=== PATIENT | female | born 1950 | race Caucasian/White ===

== ENCOUNTER 2019-06-08 08:33 | Outpatient (CLI) | payer MEDICARE, SELFPAY ==
[2019-06-08 09:40] LABS: Alanine Aminotransferase 8 U/L (4-35); Albumin Level 3.6 g/dL (3.5-5.1); Alkaline Phosphatase 104 U/L (38-126); Aspartate Amino Transferase 14 U/L (14-36); Bilirubin,Total 0.3 mg/dL (0.2-1.3); Blood Urea Nitrogen 41 mg/dL (7-17); Calcium 8.4 mg/dL (8.4-10.2); Carbon Dioxide 24 mmol/L (22-30); Chloride 107 mmol/L (98-107); Cholesterol 141 mg/dL (0-200); Estimated Glomerular Filt Rate 25; Glucose 173 mg/dL (65-105); HDL Direct 40 mg/dL; Potassium 3.9 mmol/L (3.4-5.0); Sodium 140 mmol/L (137-145); Triglycerides 138 mg/dL (<150)
[2019-06-08 09:51] LABS: LDL Cholesterol Direct 78 mg/dL
== END 2019-06-08 08:34 | disposition home or self-care (01) ==
PROVIDERS: PCP Physician Assistant; Visit Provider Physician Assistant
DX: E11.42 Type 2 diabetes mellitus with diabetic polyneuropathy (principal); Z79.4 Long term (current) use of insulin; E78.5 Hyperlipidemia, unspecified; E11.69 Type 2 diabetes mellitus with other specified complication; R53.83 Other fatigue
CPT/HCPCS: 36415; 80053; 80061; 83036; 84443

== ENCOUNTER 2020-02-23 08:48 | Outpatient (CLI) | payer MEDICARE, SELFPAY ==
[2020-02-23 09:25] LABS: Basophils Percent Auto 0.5 % (0.2-1.2); Eosinophils Absolute Auto 0.2 K/mm3 (0-0.3); Eosinophils Percent Auto 2.3 % (0-4.4); Hematocrit 38.9 % (37.0-47.0); Hemoglobin 12.3 g/dL (12.0-15.0); Immature Granulocyte Absolute 0.04 K/mm3 (0.00-0.031); Immature Granulocyte Percent A 0.5 % (0-0.5); Immature Platelet Fraction Pct 4.2 % (0.9-11.2); Lymphocytes Absolute Auto 1.44 K/mm3 (0.9-3.2); Lymphocytes Percent Auto 16.3 % (18.3-44.2); Mean Corpuscular HGB Conc 31.6 g/dl (32-36); Mean Corpuscular Hemoglobin 31.2 pg (26-34); Mean Corpuscular Volume 98.7 fl (80-100); Monocytes Absolute Auto 0.6 K/mm3 (0.1-0.6); Monocytes Percent Auto 7.3 % (2.6-8.5); Neutrophils Absolute Auto 6.5 K/mm3 (1.3-6.7); Neutrophils Percent Auto 73.1 % (45.5-73.1); Platelet Count Result 131 k/mm3 (150-375); Red Blood Count 3.94 M/mm3 (4.2-5.4); White Blood Count 8.8 K/mm3 (4.5-10.0)
[2020-02-23 09:51] LABS: Alanine Aminotransferase 9 U/L (4-35); Albumin Level 3.7 g/dL (3.5-5.1); Alkaline Phosphatase 93 U/L (38-126); Anion Gap 6 mmol/L (8-16); Aspartate Amino Transferase 18 U/L (14-36); Bilirubin,Total 0.3 mg/dL (0.2-1.3); Blood Urea Nitrogen 50 mg/dL (7-17); Calcium 8.8 mg/dL (8.4-10.2); Carbon Dioxide 25 mmol/L (22-30); Chloride 106 mmol/L (98-107); Cholesterol 133 mg/dL (0-200); Estimated Glomerular Filt Rate 20; Glucose 235 mg/dL (65-105); HDL Direct 37 mg/dL; Potassium 4.9 mmol/L (3.4-5.0); Sodium 137 mmol/L (137-145); Triglycerides 102 mg/dL (<150)
[2020-02-23 09:57] LABS: Hemoglobin A1C 8.8 % (<5.7)
[2020-02-23 10:02] LABS: LDL Cholesterol Direct 73 mg/dL
== END 2020-02-23 08:49 | disposition home or self-care (01) ==
PROVIDERS: PCP Physician Assistant; Visit Provider Physician Assistant
DX: R19.7 Diarrhea, unspecified (principal); R53.83 Other fatigue; E11.59 Type 2 diabetes mellitus with other circulatory complications
CPT/HCPCS: 36415; 80053; 80061; 83036; 84443; 85025; 85055

== ENCOUNTER 2020-02-24 10:16 | Outpatient (NON) | payer MEDICARE, SELFPAY | END 2020-02-24 10:17 | LOC: ANHLAB 10:17 | PROVIDERS: PCP Physician Assistant; Visit Provider Physician Assistant | DX: R19.7 Diarrhea, unspecified (principal) | CPT/HCPCS: 87045; 87046; 87177; 87209; 87324; 87427 ==

== ENCOUNTER 2020-09-26 09:41 | Outpatient (CLI) | payer MEDICARE, SELFPAY ==
[2020-09-26 10:29] LABS: Basophils Percent Auto 0.5 % (0.2-1.2); Eosinophils Absolute Auto 0.2 K/mm3 (0-0.3); Eosinophils Percent Auto 1.8 % (0-4.4); Hemoglobin 13.3 g/dL (12.0-15.0); Immature Granulocyte Absolute 0.04 K/mm3 (0.00-0.031); Immature Granulocyte Percent A 0.5 % (0-0.5); Lymphocytes Absolute Auto 1.49 K/mm3 (0.9-3.2); Lymphocytes Percent Auto 16.9 % (18.3-44.2); Mean Corpuscular HGB Conc 31.7 g/dl (32-36); Mean Corpuscular Hemoglobin 30.5 pg (26-34); Mean Corpuscular Volume 96.3 fl (80-100); Mean Platelet Volume 10.6 fl (7.4-10.4); Monocytes Absolute Auto 0.7 K/mm3 (0.1-0.6); Monocytes Percent Auto 7.6 % (2.6-8.5); Neutrophils Absolute Auto 6.4 K/mm3 (1.3-6.7); Neutrophils Percent Auto 72.7 % (45.5-73.1); Platelet Count Result 152 k/mm3 (150-375); Red Blood Count 4.36 M/mm3 (4.2-5.4); Red Cell Distribution Width 13.4 % (11.5-14.5); White Blood Count 8.8 K/mm3 (4.5-10.0)
[2020-09-26 10:36] LABS: Alanine Aminotransferase 10 U/L (4-35); Albumin Level 3.8 g/dL (3.5-5.1); Alkaline Phosphatase 106 U/L (38-126); Anion Gap 9 mmol/L (8-16); Aspartate Amino Transferase 15 U/L (14-36); Bilirubin,Total 0.6 mg/dL (0.2-1.3); Blood Urea Nitrogen 34 mg/dL (7-17); Calcium 8.9 mg/dL (8.4-10.2); Carbon Dioxide 31 mmol/L (22-30); Chloride 97 mmol/L (98-107); Cholesterol 150 mg/dL (0-200); Estimated Glomerular Filt Rate 22; Glucose 358 mg/dL (65-105); HDL Direct 42 mg/dL; Potassium 3.4 mmol/L (3.4-5.0); Sodium 137 mmol/L (137-145); Triglycerides 139 mg/dL (<150)
[2020-09-26 10:37] LABS: Hemoglobin A1C 10.7 % (<5.7)
[2020-09-26 10:48] LABS: LDL Cholesterol Direct 71 mg/dL
[2020-09-26 11:13] LABS: Creatinine Urine 344.4 mg/dL
[2020-09-26 11:19] LABS: MALB Creatinine Ratio 25.4 mg/g (0-30); Microalbumin Urine Random 87.4 mg/L (0-16.7)
== END 2020-09-26 09:42 | disposition home or self-care (01) ==
PROVIDERS: PCP Physician Assistant; Visit Provider Physician Assistant
DX: E11.42 Type 2 diabetes mellitus with diabetic polyneuropathy (principal); Z79.4 Long term (current) use of insulin; R53.83 Other fatigue
CPT/HCPCS: 36415; 80053; 80061; 82043; 83036; 84443; 85025

== ENCOUNTER 2021-04-13 23:13 | Emergency (ER) | payer MEDICARE, SELFPAY ==
[2021-04-13 23:20] VITALS: BP 108/72; PULSE 64; RESP 18; TEMP 36.7; O2SAT 100
[2021-04-13] MEDS: SODIUM CHLORIDE 0.9% IV 1,000 ML 999 ML IV CONT (23:48)
[2021-04-13] MEDS: ALBUTEROL SULFATE NEB 2.5 MG/0.5 ML INH 5 MG INHALATION (23:50)
[2021-04-13] MEDS: IPRATROPIUM BR 0.02% INH SOLN 0.5 MG/2.5 ML VIAL INHALATION (23:50)
[2021-04-13 23:54] VITALS: PULSE 62; RESP 17
[2021-04-14 00:02] VITALS: PULSE 69; RESP 17
[2021-04-14 00:16] LABS: Basophils Percent Auto 0.3 % (0.2-1.2); Eosinophils Absolute Auto 0.2 K/mm3 (0-0.3); Eosinophils Percent Auto 2.5 % (0-4.4); Hematocrit 35.2 % (37.0-47.0); Hemoglobin 11.1 g/dL (12.0-15.0); Immature Granulocyte Absolute 0.07 K/mm3 (0.00-0.031); Immature Granulocyte Percent A 0.8 % (0-0.5); Lymphocytes Percent Auto 15.2 % (18.3-44.2); Mean Corpuscular HGB Conc 31.5 g/dl (32-36); Mean Corpuscular Hemoglobin 30.8 pg (26-34); Mean Corpuscular Volume 97.8 fl (80-100); Mean Platelet Volume 9.9 fl (7.4-10.4); Monocytes Absolute Auto 0.8 K/mm3 (0.1-0.6); Monocytes Percent Auto 8.9 % (2.6-8.5); Neutrophils Absolute Auto 6.7 K/mm3 (1.3-6.7); Neutrophils Percent Auto 72.3 % (45.5-73.1); Platelet Count Result 207 k/mm3 (150-375); Red Cell Distribution Width 12.7 % (11.5-14.5); White Blood Count 9.2 K/mm3 (4.5-10.0)
[2021-04-14 00:24] LABS: Acetaminophen < 10 ug/mL (10-30); Ethanol < 10 mg/dL (<10); Potassium 3.7 mmol/L (3.4-5.0)
[2021-04-14 00:30] LABS: Alanine Aminotransferase 7 U/L (4-35); Albumin Level 3.7 g/dL (3.5-5.1); Alkaline Phosphatase 78 U/L (38-126); Anion Gap 8 mmol/L (8-16); Aspartate Amino Transferase 16 U/L (14-36); Bilirubin,Total 0.4 mg/dL (0.2-1.3); Blood Urea Nitrogen 31 mg/dL (7-17); Calcium 8.7 mg/dL (8.4-10.2); Carbon Dioxide 27 mmol/L (22-30); Chloride 102 mmol/L (98-107); Estimated CRCL calculation 20 ml/min; Estimated Glomerular Filt Rate 18; Glucose 96 mg/dL (65-110); Magnesium 2.1 mg/dL (1.6-2.3); Sodium 137 mmol/L (137-145)
[2021-04-14 00:36] LABS: INR 1.4; Partial Thromboplastin Time 43.2 SECONDS (22.3-36.8); Prothrombin Time 17.2 Seconds (11.1-14.7)
--- NOTE | 2021-04-14 00:52 | ED.GENADULT ---
HPI - General Adult General Chief complaint: Unspecified Stated complaint: TOOK 4-300MG LITHIUM Time Seen by Provider: 04/13/21 23:22 History of Present Illness HPI narrative: Patient is a 70-year-old female who presents ER after inadvertently taking her daughter's medication. They both take for prescription meds and she grabbed the wrong medications. This caused her to ingest 1 300 mg tablet of lithium, and also a tablet of Seroquel tablet of topiramate, and that tablet of BuSpar. Patient reports shortly afterwards she did feel like she was high and she began slurring her speech. She reports both have improved however she still has some mild slurred speech and feels tired. She is concerned that she may have ingested in an appropriate amount of medication. Denies any other coingestants. Denies any intoxication. Related Data Allergies Allergy/AdvReac Type Severity Reaction Status Date / Time Sulfa (Sulfonamide Allergy Unknown Unknown Verified 01/31/18 10:29 Antibiotics) Review of Systems Review of Systems: All systems reviewed & are unremarkable except as noted in HPI and below Constitutional: Constitutional: Denies chills, Denies fever(s) and Denies weakness Cardiovascular: Cardiovascular: Denies chest pain, Denies radiating jaw, neck or arm pain and Denies palpitations Respiratory: Respiratory: Denies cough, Denies dyspnea and Reports wheezing (Chronic from COPD) Neurologic: Denies dizziness, Denies headache(s) and Denies focal weakness Comments: Slurred speech Psychiatric: Psychiatric: Denies anxiety, Denies depression, Denies homicidal ideation and Denies suicidal ideation [facility] Past Medical History Medical History (Updated 04/14/21 @ 06:35 by Lj Long MD) Anxiety CHF (congestive heart failure) COPD (chronic obstructive pulmonary disease) Depression DVT (deep venous thrombosis) History of diabetes mellitus Hyperlipidemia Hypertension Kidney stones Surgical History Surgical History (Updated 04/14/21 @ 06:26 by Lj Long MD) H/O lumpectomy History of cholecystectomy History of tonsillectomy Social History Social History Smoking status: Heavy tobacco smoker Exam Narrative: GENERAL: Chronically ill-appearing, morbidly obese, and in no acute distress. HEAD: Normocephalic, atraumatic. EYES: PERRL and EOMI. ENT: Mucous membranes moist. CHEST: Expiratory wheezing bilaterally. No respiratory distress. HEART: Regular rate and rhythm. Normal peripheral pulses. ABDOMEN: Soft, nontender, nondistended. EXTREMITIES: Normal range of motion. No edema. SKIN: Warm, dry, no rash. NEURO: No facial droop, slurring speech is more consistent with sedation. Alert and oriented x3. PSYCH: Normal mood and affect. No SI/HI. Course Course Emergency Course: Patient observed and also received nebulizer treatment. Resting calmly. Oriented x3. Clear speech. Ready to be discharged home. Vital Signs Vital signs: Vital Signs Temperature 98.0 F 04/13/21 23:20 Pulse Rate 64 04/13/21 23:20 Respiratory Rate 18 04/13/21 23:20 Blood Pressure 108/72 04/13/21 23:20 Pulse Oximetry 100 04/13/21 23:20 Temperature 98.0 F 04/13/21 23:20 Pulse Rate 79 04/14/21 04:49 Respiratory Rate 18 04/14/21 04:49 Blood Pressure 159/83 H 04/14/21 04:49 Pulse Oximetry 98 04/14/21 04:49 Medical Decision Making Vital Signs Vital Signs: Vital Signs Temperature 98.0 F 04/13/21 23:20 Pulse Rate 64 04/13/21 23:20 Respiratory Rate 18 04/13/21 23:20 Blood Pressure 108/72 04/13/21 23:20 Pulse Oximetry 100 04/13/21 23:20 Temperature 98.0 F 04/13/21 23:20 Pulse Rate 79 04/14/21 04:49 Respiratory Rate 18 04/14/21 04:49 Blood Pressure 159/83 H 04/14/21 04:49 Pulse Oximetry 98 04/14/21 04:49 Lab Data Result diagrams: 04/13/21 23:51 04/13/21 23:52 Labs: Lab Results 04/13/21 04/13/21 04/13/21 Range/Units 23:51
[2021-04-14 01:25] LABS: Lithium < 0.2 mmol/L (0.6-1.2)
[2021-04-14] MEDS: SODIUM CHLORIDE 0.9% IV 500 ML 999 ML IV CONT (02:24)
[2021-04-14 03:13] LABS: Add Urine Microscopic? YES; Appearance Urine Cloudy (Clear); Bacteria Urine 1+ /hpf; Bilirubin Urine Negative (Negative); Blood Urine Negative (Negative); Color Urine Amber (Yellow); Glucose Urine UA Negative (Negative); Ketones Urine Negative (Negative); Leukocyte Esterase Ur 1+ LEU/UL (Negative); Mucus Urine Rare /lpf; Nitrate Urine Negative (Negative); Protein Urine Negative (Negative); Specific Grav Ur 1.018 (1.001-1.035); Squamous Epithelial Cell Urine Many /hpf (Few)
[2021-04-14 04:49] VITALS: BP 159/83; PULSE 79; RESP 18; O2SAT 98
--- NOTE | 2021-04-14 07:15 | PC.NURSE ---
daughter contacted and stated she will be in as soon as possible to transport patient home.
== END 2021-04-14 07:30 | disposition home or self-care (01) ==
PROVIDERS: Emergency Provider Emergency Medicine; PCP Physician Assistant
DX: T43.591A Poisoning by other antipsychotics and neuroleptics, accidental (unintentional), initial encounter (principal); T42.6X1A Poisoning by other antiepileptic and sedative-hypnotic drugs, accidental (unintentional), initial encounter; I50.9 Heart failure, unspecified; J44.9 Chronic obstructive pulmonary disease, unspecified; E11.9 Type 2 diabetes mellitus without complications; E78.5 Hyperlipidemia, unspecified; Z87.442 Personal history of urinary calculi; Z86.718 Personal history of other venous thrombosis and embolism; I11.0 Hypertensive heart disease with heart failure; F17.200 Nicotine dependence, unspecified, uncomplicated; R82.998 Other abnormal findings in urine
CPT/HCPCS: 36415; 80053; 80178; 80307; 81001; 83735; 84443; 85025; 85610; 85730; 87086; 87088; 94640; 96360; 96361; 99284; J7030; J7040

== ENCOUNTER 2021-08-14 11:06 | Outpatient (CLI) | payer MEDICARE, SELFPAY ==
[2021-08-14 11:35] LABS: Basophils Absolute Auto 0.1 K/mm3 (0.0-0.1); Basophils Percent Auto 0.5 % (0.2-1.2); Eosinophils Absolute Auto 0.2 K/mm3 (0-0.3); Eosinophils Percent Auto 1.5 % (0-4.4); Hematocrit 34.6 % (37.0-47.0); Hemoglobin 11.2 g/dL (12.0-15.0); Immature Granulocyte Absolute 0.04 K/mm3 (0.00-0.031); Immature Granulocyte Percent A 0.4 % (0-0.5); Lymphocytes Absolute Auto 1.54 K/mm3 (0.9-3.2); Lymphocytes Percent Auto 15.7 % (18.3-44.2); Mean Corpuscular HGB Conc 32.4 g/dl (32-36); Mean Corpuscular Hemoglobin 32.1 pg (26-34); Mean Corpuscular Volume 99.1 fl (80-100); Monocytes Absolute Auto 0.8 K/mm3 (0.1-0.6); Monocytes Percent Auto 8.4 % (2.6-8.5); Neutrophils Absolute Auto 7.2 K/mm3 (1.3-6.7); Neutrophils Percent Auto 73.5 % (45.5-73.1); Platelet Count Result 199 k/mm3 (150-375); Red Blood Count 3.49 M/mm3 (4.2-5.4); Red Cell Distribution Width 15.9 % (11.5-14.5); White Blood Count 9.8 K/mm3 (4.5-10.0)
[2021-08-14 11:47] LABS: Alanine Aminotransferase 8 U/L (4-35); Albumin Level 3.8 g/dL (3.5-5.1); Alkaline Phosphatase 82 U/L (38-126); Anion Gap 6 mmol/L (8-16); Aspartate Amino Transferase 17 U/L (14-36); Bilirubin,Total 0.6 mg/dL (0.2-1.3); Blood Urea Nitrogen 28 mg/dL (7-17); Calcium 8.4 mg/dL (8.4-10.2); Carbon Dioxide 28 mmol/L (22-30); Chloride 103 mmol/L (98-107); Cholesterol 152 mg/dL (0-200); Estimated Glomerular Filt Rate 30; Glucose 120 mg/dL (65-110); HDL Direct 36 mg/dL; Potassium 3.7 mmol/L (3.4-5.0); Sodium 137 mmol/L (137-145); Triglycerides 102 mg/dL (<150)
[2021-08-14 11:58] LABS: LDL Cholesterol Direct 76 mg/dL
[2021-08-14 13:14] LABS: Creatinine Urine 263.9 mg/dL
[2021-08-14 13:35] LABS: MALB Creatinine Ratio 31.1 mg/g (0-30); Microalbumin Urine Random 82.2 mg/L (0-16.7)
== END 2021-08-14 11:07 | disposition home or self-care (01) ==
PROVIDERS: PCP Physician Assistant; Visit Provider Physician Assistant
DX: R53.83 Other fatigue (principal); E11.59 Type 2 diabetes mellitus with other circulatory complications; I15.2 Hypertension secondary to endocrine disorders
CPT/HCPCS: 36415; 80053; 80061; 82043; 83036; 84443; 85025

== ENCOUNTER 2021-08-17 14:59 | Emergency (ER) | payer MEDICARE, SELFPAY ==
--- NOTE | ~2021-08-17 | XR_ITS ---
EXAMINATION: XR shoulder RT min 2V DATE: 08/17/2021 15:18 INDICATION: Right shoulder pain. TECHNIQUE: 4 views of right shoulder were obtained. COMPARISON: None. FINDINGS: Bone alignment is normal. There is a nondisplaced fracture of greater tuberosity of proxima l humerus. Glenohumeral joint is not well profiled. There is severe acromioclavicular joint osteoarth ritis. IMPRESSION: 1. Nondisplaced fracture of greater tuberosity of proximal humerus. Reviewed, dictated and finalized at location A.
[2021-08-17 15:02] VITALS: BP 129/79; PULSE 80; RESP 18; TEMP 36.8; O2SAT 100
--- NOTE | 2021-08-17 16:27 | ED.UPPEXIN ---
HPI - Extremity Injury (Upper) General Chief Complaint: Extremity Injury, Upper Stated Complaint: FALL/DISLO RT HSOULDER Time Seen by Provider: 08/17/21 15:01 History of Present Illness HPI narrative: Patient is a 70-year-old female who presents ER status post fall. Patient was walking up a ramp at her home when she slipped in the water and fell on her left side. Sudden onset pain to the left shoulder which she landed on. She did not strike her head or lose consciousness. She is not on any blood thinners. She has no pain at her elbow or wrist. No numbness or tingling. Related Data Allergies Allergy/AdvReac Type Severity Reaction Status Date / Time Sulfa (Sulfonamide Allergy Unknown Unknown Verified 01/31/18 10:29 Antibiotics) Review of Systems Review of Systems: All systems reviewed & are unremarkable except as noted in HPI and below Gastrointestinal: Gastrointestinal: Denies nausea and Denies vomiting Musculoskeletal: Musculoskeletal: Reports arthralgias, Denies joint swelling and Denies muscle cramps Neurologic: Denies syncope, Denies headache(s), Denies focal weakness and Denies numbness [facility] Past Medical History Medical History (Updated 08/17/21 @ 16:31 by Lj Long MD) Anxiety CHF (congestive heart failure) COPD (chronic obstructive pulmonary disease) Depression DVT (deep venous thrombosis) History of diabetes mellitus Hyperlipidemia Hypertension Kidney stones Surgical History Surgical History (Updated 04/14/21 @ 06:26 by Lj Long MD) H/O lumpectomy History of cholecystectomy History of tonsillectomy Social History Social History Smoking status: Heavy tobacco smoker Exam Narrative: GENERAL: Well-appearing, well-nourished, and in no acute distress. HEAD: Normocephalic, atraumatic. CHEST: Clear to auscultation. No respiratory distress. HEART: Regular rate and rhythm. No murmur heard. Normal peripheral pulses. EXTREMITIES: Limited range of motion at the right shoulder due to pain. Tender palpation over the lateral aspect and anterior joint line of the shoulder. No clavicular tenderness. Normal perfusion and sensation throughout the entirety of the right upper extremity. No tenderness at the wrist or elbow. SKIN: Warm, dry, no rash. NEURO: Alert and oriented x3. PSYCH: Normal mood and affect. Course Course Emergency Course: Patient informed of results. Placed in a sling. Will refer to orthopedic surgery. Discharge home. Vital Signs Vital signs: Vital Signs Temperature 98.2 F 08/17/21 15:02 Pulse Rate 80 08/17/21 15:02 Respiratory Rate 18 08/17/21 15:02 Blood Pressure 129/79 08/17/21 15:02 Pulse Oximetry 100 08/17/21 15:02 Temperature 98.2 F 08/17/21 15:02 Pulse Rate 80 08/17/21 15:02 Respiratory Rate 18 08/17/21 15:02 Blood Pressure 129/79 08/17/21 15:02 Pulse Oximetry 100 08/17/21 15:02 MDM - Extremity Injury (Upper) Imaging Data Radiologist's impression: ITS Impressions Shoulder X-Ray 08/17/21 15:19 IMPRESSION: 1. Nondisplaced fracture of greater tuberosity of proximal humerus. Discharge Plan Discharge Clinical Impression: Nondisplaced fracture of greater tuberosity of humerus Patient Disposition: Home, Self-Care Condition: Stable Instructions: Arm Fracture in Adults (ED), How to Use a Sling (ED) Additional Instructions: Return the ER if you suffer additional injury, you have a cold/blue arm, you have new numbness in your arm, you have additional concerns. Prescriptions: New hydrocodone-acetaminophen 5-325 mg tablet 1 tablet PO Q6H PRN (Reason: pain) Qty: 20 RF: 0 Follow-up/Referrals: Gibson Hightower MD [Physician] - 1 Week Timothy,YVETTE Olea [Primary Care Provider] - None
== END 2021-08-17 16:45 | disposition home or self-care (01) ==
PROVIDERS: Emergency Provider Emergency Medicine; PCP Physician Assistant
DX: S42.254A Nondisplaced fracture of greater tuberosity of right humerus, initial encounter for closed fracture (principal); I50.9 Heart failure, unspecified; J44.9 Chronic obstructive pulmonary disease, unspecified; E11.9 Type 2 diabetes mellitus without complications; E78.5 Hyperlipidemia, unspecified; I10 Essential (primary) hypertension; Z86.718 Personal history of other venous thrombosis and embolism; Z87.442 Personal history of urinary calculi; F17.200 Nicotine dependence, unspecified, uncomplicated
CPT/HCPCS: 73030; 99284; A4565

== ENCOUNTER 2021-08-19 11:17 | Outpatient (NON) | payer MEDICARE, SELFPAY | END 2021-08-19 11:18 | disposition home or self-care (01) | LOC: ANHLAB 11:20 | PROVIDERS: PCP Physician Assistant; Visit Provider Physician Assistant | DX: R30.0 Dysuria (principal) | CPT/HCPCS: 87086 ==

== ENCOUNTER 2022-02-02 13:40 | Emergency (ER) | payer MEDICARE, SELFPAY ==
[2022-02-02 13:50] VITALS: BP 100/58; PULSE 60; RESP 20; TEMP 36.2; O2SAT 100
--- NOTE | 2022-02-02 14:33 | ED.EAR ---
HPI - Ear Problem General Chief complaint: Ear Stated complaint: Lt Ear Irritation Time Seen by Provider: 02/02/22 14:20 Source: patient Mode of arrival: ambulatory Limitations: no limitations History of Present Illness HPI Narrative: 71 y/o female presented for c/o left ear pain after Q-tip trauma one week ago. States she was cleaning the left ear with the cotton swab when she 'went in too deep and pulled out a sac of blood.' Since then she has had pain to the ear, decreased hearing and bloody drainage since. Endorses occasional dizziness. Denies tinnitus, nausea, vomiting or fever. She has applied neosporin to the site and covered it with dressing to prevent the wind from getting in the ear. States she takes aspirin daily and 'a blood thinner' but does not know if she is actively taking the medication at this time. Granddaughter states someone helps her with the medication. Nick is on the med list. Hx CHF, COPD, HTN, DVT, DM MD Complaint: ear pain Related Data Home Medications Medication Instructions Recorded Confirmed Blood Thinner PO DIRECTED 09/01/21 09/01/21 albuterol sulfate 90 mcg/actuation inhalation 02/02/22 aerosol inhaler clonazepam 1 mg tablet mg 02/02/22 insulin detemir U-100 100 unit/mL unit subcut 02/02/22 (3 mL) subcutaneous pen (Levemir FlexTouch U-100 Insulin) linagliptin 5 mg tablet (Tradjenta) mg 02/02/22 Allergies Allergy/AdvReac Type Severity Reaction Status Date / Time Sulfa (Sulfonamide Allergy Unknown Unknown Verified 09/01/21 08:36 Antibiotics) Review of Systems Review of Systems: CONSTITUTIONAL: Denies malaise, chills, or fever. EYES: Denies visual changes, redness, or discharge. ENT: Denies rhinorrhea, congestion, sinus pain, and sore throat. Reports ear pain CARDIOVASCULAR: Denies chest pain, palpitations, or edema. RESPIRATORY: Denies cough or dyspnea. GASTROINTESTINAL: Denies abdominal pain, nausea, vomiting, diarrhea SKIN: Denies rash or itching. MUSCULOSKELETAL: Denies myalgia. NEUROLOGIC: Denies headache. All systems reviewed & are unremarkable except as noted in HPI and below PMFSH Past Medical History Medical History Anxiety Arthritis CHF (congestive heart failure) Claustrophobia COPD (chronic obstructive pulmonary disease) Depression Diabetes DVT (deep venous thrombosis) Fracture of greater tuberosity of humerus History of diabetes mellitus Hyperlipidemia Hypertension IBS (irritable bowel syndrome) Kidney stones MRSA (methicillin resistant staph aureus) culture positive Opioid dependence DANNI (obstructive sleep apnea) Vision changes Surgical History Surgical History H/O lumpectomy History of cholecystectomy History of tonsillectomy Pacemaker Family History Family History Other Arthritis Depression Diabetes mellitus Heart disease Hypertension Kidney disorder Neuropathy Social History Social History Smoking status: Heavy tobacco smoker Tobacco type: cigarettes Alcohol intake: never Substance use type: does not use Gender identity (if verbalized by the patient): Female Comments At time of signature, agree with nursing past medical, surgical, social and family history. There is no relevant family history pertinent to the presenting complaint Exam Narrative: GENERAL: Chronically ill appearing; in no acute distress. HEAD: Normocephalic, atraumatic EYES: PERRLA, conjunctivae clear ENT: Nares clear. Mucous membranes moist. Right TM pearly gallo with normal light reflex; Left TM unable to visualize due to dried and clotted blood; See procedural note. Oropharynx not erythematous without lesions. NECK: Supple. No lymphadenopathy CHEST: Lungs diminished with wheezing throughout; audible wheezing noted;
== END 2022-02-02 14:48 | disposition home or self-care (01) ==
PROVIDERS: Emergency Provider Nurse Practitioner Family; PCP Physician Assistant
DX: S09.22XA Traumatic rupture of left ear drum, initial encounter (principal); X58.XXXA Exposure to other specified factors, initial encounter; I11.0 Hypertensive heart disease with heart failure; I15.0 Renovascular hypertension; J44.9 Chronic obstructive pulmonary disease, unspecified; E11.9 Type 2 diabetes mellitus without complications; Z86.718 Personal history of other venous thrombosis and embolism; F41.9 Anxiety disorder, unspecified; M19.90 Unspecified osteoarthritis, unspecified site; G47.33 Obstructive sleep apnea (adult) (pediatric); Z95.0 Presence of cardiac pacemaker
CPT/HCPCS: 69200; 99213; G0463

== ENCOUNTER 2022-03-24 17:32 | Inpatient (IN) | payer MEDICARE, SELFPAY ==
[2022-03-24] VITALS (7 sets, daily range): BP systolic 103–133; BP diastolic 54–79; PULSE 59–78; RESP 18–20; TEMP 36.5–36.8; O2SAT 89–100; BMI 45.7
--- NOTE | ~2022-03-24 | CT_ITS ---
EXAMINATION: CT brain wo con INDICATION: Altered mental status COMPARISON: 12/18/2018 TECHNIQUE: Standard unenhanced head CT. The dose-length product (DLP) was 605.33 mGy-cm. The mA was a djusted according to patient size. Iterative reconstruction technique was employed. FINDINGS: There is no acute intraparenchymal hemorrhage. No evidence of mass lesion. No evidence of a cute infarction. There is mild periventricular and subcortical hypodensity probably related to small vessel ischemic disease. There is mild prominence of the sulci and ventricles related to cerebral atr ophy. Intracranial calcified cerebral atherosclerosis is noted. There are no extra-axial collections. There is no mass effect or midline shift. Changes in the globes are likely from ocular lens surgery. There is mild mucosal thickening of the paranasal sinuses. IMPRESSION: 1. No acute intracranial abnormality. 2. Age related findings. Reviewed, dictated and finalized at location A. D ENGINEER AUDIO CONTROL
--- NOTE | ~2022-03-24 | XR_ITS ---
EXAMINATION: XR chest 2V Exam Date/Time: 03/24/2022 19:10 RESEARCH MANAGER HISTORY: SOB, wheezing, hx COPD, HX CHF Comparison: None available. RESULT: Lines, tubes, and devices: Left chest pacer/defibrillator, with 3 intact leads. Cholecystectomy clip s. Lungs and pleura: Right hemidiaphragm elevation, otherwise clear. Cardiomediastinal silhouette: Stable. Other: No acute osseous or upper abdominal finding. IMPRESSION: No acute cardiopulmonary process. Reviewed, dictated and finalized at location K. ARCH MANAGER
--- NOTE | ~2022-03-24 | XR_ITS ---
Portable chest x-ray Comparison: 03/24/2022 Clinical History: Wheezing Findings: Probable mild central pulmonary venous congestive changes. No consolidation or pleural eff usion. Cardiomediastinal silhouette is stable, with pacemaker device. Bones and soft tissues are unr emarkable. Impression: Mild central pulmonary venous congestive change. Pacemaker is. Reviewed, dictated and finalized at location [] PRINTER APPRENTICE Impression: Mild central pulmonary venous congestive change. Pacemaker is.
--- NOTE | ~2022-03-24 | XR_ITS ---
EXAMINATION: XR chest 1V portable INDICATION: Shortness of breath TECHNIQUE: Portable AP chest at 0946 hours COMPARISON: 03/29/2022 FINDINGS: Minimal interstitial opacities persist with slight improvement. The cardiomediastinal silho uette is stable. No pleural effusion or pneumothorax. A triple lead cardiac pacemaker of the left olivia st wall ends with leads in expected locations. IMPRESSION: 1. Mild pulmonary edema with interval improvement. Reviewed, dictated and finalized at location A. BILITATION AIDE/SCHEDULER
--- NOTE | 2022-03-24 17:55 | ECG_ITS ---
Measurements Intervals [place] Rate: 60 P: 94 OR: 182 QRS: 34 QRSD: 134 T: 24 QT: 468 QTc: 468 Interpretive Statements ELECTRONIC ATRIAL PACEMAKER ELECTRONIC VENTRICULAR PACEMAKER ABNORMAL RHYTHM ECG COMPARED TO ECG 11/27/2018 14:29:02 NO SIGNIFICANT CHANGES Electronically Signed On 03-25-2022 8:33:41 URBAN PLANNING TEACHER by Obey Baez M.D.
--- NOTE | 2022-03-24 18:11 | ED.WEAKNESS ---
HPI - Weakness General Chief complaint: Weakness Stated complaint: weakness Time Seen by Provider: 03/24/22 17:55 History of Present Illness HPI Narrative: Patient is a 71-year-old female with a history of COPD, pacemaker placement, DM here for evaluation of weakness, cough and shortness of breath over the past several days. Cough is productive of clear sputum. She tells me she has been dyspneic at rest upon minimal exertion, unrelieved by her home inhalers. Noted to have a pulse saturation in the high 80s upon arrival. Denies history of hypoxia or home o2 requirement. She states that her weakness today led her to fall. Denies any head injury or bony injury in the fall, just states that she feels sore all over. Positive sick contacts, patient's family members are sick with similar symptoms. She denies any chest pain, abdominal pain, nausea, vomiting or leg swelling. She continues to smoke. Related Data Home Medications Medication Instructions Recorded Confirmed Blood Thinner PO DIRECTED 09/01/21 09/01/21 albuterol sulfate 90 mcg/actuation inhalation 02/02/22 aerosol inhaler clonazepam 1 mg tablet mg 02/02/22 insulin detemir U-100 100 unit/mL unit subcut 02/02/22 (3 mL) subcutaneous pen (Levemir FlexTouch U-100 Insulin) linagliptin 5 mg tablet (Tradjenta) mg 02/02/22 Allergies Allergy/AdvReac Type Severity Reaction Status Date / Time Sulfa (Sulfonamide Allergy Unknown Hives Verified 03/24/22 17:50 Antibiotics) Review of Systems Review of Systems: Gen: Denies fevers or chills Eyes: Denies eye pain or visual change ENT: Denies congestion Respiratory: Reports shortness of breath and cough CV: Denies chest pain or palpitations GI: Denies abdominal pain nausea, emesis or diarrhea : denies burning, urgency, frequency or hematuria Musculoskeletal: Denies back pain or muscle pain Neuro: Denies numbness, tingling, weakness or focal weakness Skin: Denies rash Except as documented, all other systems reviewed and negative [facility] Past Medical History Medical History Anxiety Arthritis CHF (congestive heart failure) Claustrophobia COPD (chronic obstructive pulmonary disease) Depression Diabetes DVT (deep venous thrombosis) Fracture of greater tuberosity of humerus History of diabetes mellitus Hyperlipidemia Hypertension IBS (irritable bowel syndrome) Kidney stones MRSA (methicillin resistant staph aureus) culture positive Opioid dependence DANNI (obstructive sleep apnea) Vision changes Surgical History Surgical History H/O lumpectomy History of cholecystectomy History of tonsillectomy Pacemaker Family History Family History Other Arthritis Depression Diabetes mellitus Heart disease Hypertension Kidney disorder Neuropathy Social History Social History Smoking status: Heavy tobacco smoker Tobacco type: cigarettes Alcohol intake: never Substance use type: does not use Gender identity (if verbalized by the patient): Female Exam Narrative: APPEARANCE: Chronically ill-appearing, discheveled Head: Normocephalic and atraumatic. EYES: PERRLA/EOMI, conjunctivae clear NOSE: No nasal drainage EARS: External ear normal in appearance THROAT: Oropharynx is clear. NECK: Supple. No adenopathy, no masses. RESPIRATORY: tachypneic, expiratory and inspiratory wheezing throughout lung dias CARDIOVASCULAR: Regular rate and rhythm without murmurs, rubs, or gallops. ABDOMINAL: Normoactive bowel sounds. Soft, nontender, nondistended. No rebound tenderness or guarding. MUSCULOSKELETAL: Nonpitting edema to bilateral lower extremities. NEURO: Normal speech. No focal neurologic deficits. SKIN: Numerous contusions in various stages of healing to bilate
[2022-03-24 18:32] LABS: Basophils Percent Auto 0.4 % (0.2-1.2); Eosinophils Percent Auto 0.5 % (0-4.4); Hematocrit 34.5 % (37.0-47.0); Hemoglobin 10.7 g/dL (12.0-15.0); Immature Granulocyte Absolute 0.06 K/mm3 (0.00-0.031); Immature Granulocyte Percent A 1.1 % (0-0.5); Immature Platelet Fraction Pct 4.1 % (0.9-11.2); Lymphocytes Absolute Auto 1.13 K/mm3 (0.9-3.2); Mean Corpuscular Hemoglobin 31.9 pg (26-34); Mean Platelet Volume 10.9 fl (7.4-10.4); Monocytes Absolute Auto 0.4 K/mm3 (0.1-0.6); Monocytes Percent Auto 7.6 % (2.6-8.5); Neutrophils Percent Auto 70.4 % (45.5-73.1); Platelet Count Result 132 k/mm3 (150-375); Red Blood Count 3.35 M/mm3 (4.2-5.4); Red Cell Distribution Width 14.4 % (11.5-14.5); White Blood Count 5.7 K/mm3 (4.5-10.0)
[2022-03-24 18:39] LABS: Lactic Acid Reflex 1.3 mmol/L (0.7-2.0)
[2022-03-24 18:40] LABS: Alanine Aminotransferase 12 U/L (6-35); Albumin Level 3.3 g/dL (3.5-5.1); Alkaline Phosphatase 61 U/L (38-126); Anion Gap 3 mmol/L (8-16); Aspartate Amino Transferase 22 U/L (14-36); Bilirubin,Total 0.6 mg/dL (0.2-1.3); Blood Urea Nitrogen 56 mg/dL (7-17); Calcium 7.8 mg/dL (8.4-10.2); Carbon Dioxide 31 mmol/L (22-30); Chloride 101 mmol/L (98-107); Estimated CRCL calculation 23 ml/min; Estimated Glomerular Filt Rate 15; Glucose 175 mg/dL (65-110); Potassium 3.6 mmol/L (3.4-5.0); Sodium 135 mmol/L (137-145)
[2022-03-24 18:48] LABS: NT Pro B Type Natriuretic Pept 1340 pg/mL (5-100)
[2022-03-24] MEDS: predniSONE 20 MG TABLET 60 MG PO (19:18)
[2022-03-24 19:38] LABS: Influenza A QL RT-PCR Positive (Negative); Influenza B QL RT-PCR Negative (Negative); SARS-CoV-2 RNA PCR Negative
[2022-03-24] MEDS: ALBUTEROL SULFATE NEB 2.5 MG/3 ML INH 5 MG INHALATION (20:42)
[2022-03-24] MEDS: SODIUM CHLORIDE 0.9% IV 1,000 ML 999 ML IV CONT (20:42)
[2022-03-24] MEDS: IPRATROPIUM BR 0.02% INH SOLN 0.5 MG/2.5 ML VIAL INHALATION (20:42)
[2022-03-24] MEDS: OSELTAMIVIR PHOSPHATE ORAL SUSP 30 MG/5 ML SYRINGE PO (21:00)
[2022-03-24 21:44] LABS: Fractional Inspired Oxygen 28 %; HCO3 VBG 27.1 mEq/l (24.0-30.0); PCO2 VBG 55.9 mmHg (42.0-48.0); PO2 VBG 37.3 mmHg (35.0-45.0); pH VBG 7.304 (7.300-7.400)
[2022-03-24 21:48] LABS: Device NASAL CANNULA
[2022-03-24] MEDS: SODIUM CHLORIDE 0.9% IV 1,000 ML 100 ML IV CONT (21:49)
--- NOTE | 2022-03-24 22:52 | ADMGEN ---
This patient, Pita Lowry, was admitted to Medical Room 341-01. Patient/family oriented to hospital policies and general routines including ID bracelet, bed and alarms, visiting hours, pain management, procedures, bathroom and other care routines, personal items, smoking policy, room service/diet, and visiting hours. Information on how to activate the Rapid Response Team has been discussed. Patient/Family are encouraged to report perceived risks to care and to ask questions if they do not understand what they are told or what they should do.
[2022-03-24 23:23] LABS: Glucose Point of Care 248 mg/dl (65-105)
[2022-03-25] VITALS (12 sets, daily range): BP systolic 104–115; BP diastolic 46–57; PULSE 59–75; RESP 16–20; TEMP 35.8–36.6; O2SAT 94–100
[2022-03-25] MEDS: IPRATROPIUM BR 0.02% INH SOLN 0.5 MG/2.5 ML VIAL INHALATION ×4 (02:55→22:19)
[2022-03-25] MEDS: ALBUTEROL SULFATE NEB 2.5 MG/3 ML INH 5 MG INHALATION ×4 (02:55→22:19)
--- NOTE | 2022-03-25 07:03 | PM.IMHP ---
H&P: HPI History of Present Illness Date/Time: 03/25/22 07:03 Chief Complaint: Increased weakness, cough and cold symptoms Narrative: 71-year-old female with a past medical history of COPD with continued tobacco use, morbid obesity, obstructive sleep apnea, diabetes, CHF and pacemaker due to sick sinus syndrome who presented to the ER via EMS from home due to increased weakness and cough and cold symptoms. The patient reports that she lives with her granddaughter and that her granddaughter brought home a virus from work. The patient tested positive for influenza a in the ER. She did receive her flu vaccine this year. She reports that she is not on oxygen at home but in the ER patient was hypoxic with sats down to 89%. She received nebulizer treatments and p.o. steroids. She she had borderline hypotension in the ER and received 1 L fluid bolus. The patient reports she has not had any significant oral intake in the last 3 days. She denies any fevers or chills. She reports chronic dyspnea on exertion but does not think it is worse than baseline. She has had increased cough for the past week and reports that her sputum is thicker than usual but is clear in color. She denies any nausea or vomiting. She has chronic urinary incontinence. She states that she goes through phases were she will urinate a lot and then at other times where she cannot urinate. Currently she states that she is not really urinating much at all. She denies any dysuria or hematuria. Sounds as if she may be having some symptoms of incomplete bladder emptying. She has not had a bowel movement in 3 or 4 days. She states that she also seems to fluctuate between loose stools and constipation. It sounds like she takes stool softeners or laxatives until she had diarrhea and then stops taking all those medications in becomes constipated again. She has no intention of quitting smoking. She reports that she has become so weak that she went to get up in a ambulate from the bathroom and could not support herself and slid to the floor. She denies hitting her head or have any lightheadedness. She denies any syncope. She has extremely limited activity of daily living and only ambulates between her bedroom and bathroom her bedroom and recliner. She uses a walker. Review of Systems Review of Systems: 12 systems were reviewed with pertinent positives and negatives per HPI. Except as documented in the HPI, all other systems were reviewed and are negative. [facility] Past Medical History Medical History (Updated 03/25/22 @ 07:58 by Evelyne Bonilla DO) Anxiety Arthritis CHF (congestive heart failure) Chronic anemia Chronic kidney disease, stage 3 Claustrophobia COPD (chronic obstructive pulmonary disease) Depression Diabetes DVT (deep venous thrombosis) Fracture of greater tuberosity of humerus Hyperlipidemia Hypertension IBS (irritable bowel syndrome) Kidney stones MRSA (methicillin resistant staph aureus) culture positive Opioid dependence DANNI (obstructive sleep apnea) With CPAP/BiPAP use Vision changes Surgical History Surgical History (Updated 03/25/22 @ 07:49 by Evelyne Bonilla DO) Amputated toe of right foot 1st and 2nd toe H/O lumpectomy History of cholecystectomy History of right cataract extraction History of tonsillectomy Pacemaker Sick sinus Family History Family History Mother Arthritis Depression Diabetes mellitus Kidney disorder Neuropathy Father Heart disease Hypertension Social History Social History (Updated 03/25/22 @ 07:55 by Evelyne Bonilla DO) Social History: She lives at home with her granddaughter. 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 She smoked up to 1.5 packs per cigarettes per day. She is down to 5 cigarettes a day. She denies any history of illicit substance use. She is not drink alcohol. She ambula
[2022-03-25 08:05] LABS: Hematocrit 33.4 % (37.0-47.0); Immature Platelet Fraction Pct 3.5 % (0.9-11.2); Mean Corpuscular HGB Conc 29.9 g/dl (32-36); Mean Corpuscular Hemoglobin 32.3 pg (26-34); Mean Corpuscular Volume 107.7 fl (80-100); Mean Platelet Volume 10.6 fl (7.4-10.4); Platelet Count Result 106 k/mm3 (150-375); Red Cell Distribution Width 14.2 % (11.5-14.5); White Blood Count 4.4 K/mm3 (4.5-10.0)
[2022-03-25 08:16] LABS: Anion Gap 8 mmol/L (8-16); Blood Urea Nitrogen 58 mg/dL (7-17); Calcium 7.1 mg/dL (8.4-10.2); Carbon Dioxide 23 mmol/L (22-30); Chloride 100 mmol/L (98-107); Estimated CRCL calculation 25 ml/min; Estimated Glomerular Filt Rate 17; Glucose 275 mg/dL (65-110); Potassium 4.2 mmol/L (3.4-5.0); Sodium 131 mmol/L (137-145)
[2022-03-25] MEDS: clonazePAM (*CRX) 0.5 MG TABLET 1 MG PO ×2 (09:20→17:12)
[2022-03-25] MEDS: carvediloL 12.5 MG TABLET PO ×2 (09:23→21:11)
[2022-03-25] MEDS: predniSONE 20 MG TABLET 40 MG PO (09:23)
[2022-03-25] MEDS: FUROSEMIDE 40 MG TABLET PO (09:24)
[2022-03-25] MEDS: hydrOXYzine HCL 10 MG TABLET PO (09:24)
[2022-03-25] MEDS: lisinopriL 20 MG TABLET PO (09:24)
[2022-03-25] MEDS: DULoxetine HCL 60 MG CAPSULE.DR PO (09:24)
[2022-03-25] MEDS: ENOXAPARIN 30 MG/0.3 ML SYRINGE SUB-Q (09:24)
[2022-03-25] MEDS: SIMVASTATIN 20 MG TABLET 40 MG PO (09:25)
[2022-03-25] MEDS: OSELTAMIVIR PHOSPHATE ORAL SUSP 30 MG/5 ML SYRINGE PO (09:32)
--- NOTE | 2022-03-25 09:35 | PM.IMPN ---
Progress Note: A&P Assessment and Plan (1) Acute respiratory failure with hypoxia: Code(s): J96.01 - Acute respiratory failure with hypoxia Status: Acute Assessment and Plan: The patient has acute hypoxic respiratory failure due to COPD exacerbation caused by influenza a infection. Patient has been started on renally dosed Tamiflu, p.o. prednisone and scheduled nebulizer treatments. Patient is satting at 100% on 2 L. Will wean oxygen as tolerated to maintain O2 sats between 88 and 92% given patient's longstanding history of COPD. Patient given 500 mL normal saline due to decrease oral intake over the last couple days. (2) Influenza A: Code(s): J10.1 - Influenza due to other identified influenza virus with other respiratory manifestations Status: Acute Assessment and Plan: above (3) COPD with acute exacerbation: Code(s): J44.1 - Chronic obstructive pulmonary disease with (acute) exacerbation Status: Acute Assessment and Plan: Patient has acute kidney injury superimposed on chronic kidney disease stage 3. This is likely due to volume depletion however given the patient's report of sensation of incomplete bladder emptying in the past will check bladder scan to rule out possible component of obstructive uropathy. Will repeat BMP in a.m.. (4) Candidiasis: Code(s): B37.9 - Candidiasis, unspecified Status: Acute Assessment and Plan: Patient came into the hospital with yeast infection in her right groin extending onto the right hip. Skin is malodorous. Patient has pain associated with the rash Nystatin powder prescribed 12 p.r.n. (5) Acute kidney injury superimposed on chronic kidney disease: Code(s): N17.9 - Acute kidney failure, unspecified; N18.9 - Chronic kidney disease, unspecified Status: Acute Assessment and Plan: Creatinine at patients normal continue to monitor (6) DANNI (obstructive sleep apnea): Code(s): G47.33 - Obstructive sleep apnea (adult) (pediatric) Status: Acute Assessment and Plan: Patient has obstructive sleep apnea as and is requesting CPAP/BiPAP. Auto titrating CPAP/BiPAP has been ordered. (7) Type 2 diabetes mellitus with hyperglycemia, with long-term current use of insulin: Code(s): E11.65 - Type 2 diabetes mellitus with hyperglycemia; Z79.4 - [facility] (current) use of insulin Status: Acute Assessment and Plan: Type 2 diabetes mellitus with hyperglycemia. Patient is on p.o. steroids I anticipate some increased hyperglycemia. Will resume the patient's home insulin and will add sliding scale insulin with Accu-Cheks a.c. HS and hypoglycemia protocol. Plan Patient has been admitted as observation status. Time Spent With Patient Time with patient: Greater than 35 minutes Subjective Date/time seen: 03/25/22 09:35 Interval history: 71-year-old female with a history of type 2 diabetes, chronic kidney disease, COPD and a pacemaker due to sick sinus syndrome. Patient admitted to the hospital due to acute respiratory failure. Patient was found to be positive for influenza A. When interviewed patient she is lying in bed resting. Patient states that she has a cough and congestion. Patient denies shortness of breath, chest pain, nausea, vomiting, fever. Patient states that she has pain in her groin due to chafing . Review of Systems Review of Systems: All systems reviewed & are unremarkable except as noted in HPI and below Exam Narrative: GENERAL: Comfortable, no acute distress, obese HENMT: moist mucous membranes EYES: EOM intact b/l NECK: no lymphadenopathy RESPIRATORY: clear to auscultation CARDIO: RRR GI: soft, nontender, bowel sounds present SKIN: Patient has yeast infection starting in her right groin extending into the hip. Skin is beefy red and malodorous. EXTREMITIES: no edema, redness or tenderness Objectiv
[2022-03-25 09:43] LABS: Glucose Point of Care 276 mg/dl (65-105)
[2022-03-25] MEDS: INSULIN ASPART (*BKC) 100 UNITS/ML SUB-Q ×3 (09:45→18:13)
[2022-03-25 12:56] LABS: Glucose Point of Care 357 mg/dl (65-105)
[2022-03-25] MEDS: SODIUM CHLORIDE 0.9% IV 500 ML 75 ML IV CONT (17:11)
[2022-03-25 17:59] LABS: Glucose Point of Care 355 mg/dl (65-105)
[2022-03-25 20:15] LABS: Glucose Point of Care 388 mg/dl (65-105)
[2022-03-25] MEDS: INSULIN GLARGINE (*BKC) 100 UNITS/ML 25 UNITS SUB-Q (21:10)
[2022-03-25] MEDS: TOLNAFTATE 1% POWDER 45 GM BTL 1 APPLIC TOPICAL (21:14)
[2022-03-25] MEDS: HYDROcodone/acetaminophen (*CRX) 5-325 MG TABLET 1 TAB PO (23:00)
[2022-03-26] VITALS (17 sets, daily range): BP systolic 107–125; BP diastolic 55–73; PULSE 59–76; RESP 18–22; TEMP 36.6–36.7; O2SAT 94–100
[2022-03-26] MEDS: ALBUTEROL SULFATE NEB 2.5 MG/3 ML INH 5 MG INHALATION ×4 (03:10→19:35)
[2022-03-26] MEDS: IPRATROPIUM BR 0.02% INH SOLN 0.5 MG/2.5 ML VIAL INHALATION ×4 (03:10→19:35)
[2022-03-26 05:56] LABS: Glucose Point of Care 352 mg/dl (65-105)
[2022-03-26 06:10] LABS: Alanine Aminotransferase 9 U/L (6-35); Albumin Level 3.1 g/dL (3.5-5.1); Alkaline Phosphatase 50 U/L (38-126); Anion Gap 6 mmol/L (8-16); Aspartate Amino Transferase 16 U/L (14-36); Bilirubin,Total 0.6 mg/dL (0.2-1.3); Blood Urea Nitrogen 66 mg/dL (7-17); Calcium 6.9 mg/dL (8.4-10.2); Carbon Dioxide 27 mmol/L (22-30); Chloride 98 mmol/L (98-107); Estimated CRCL calculation 22 ml/min; Estimated Glomerular Filt Rate 15; Glucose 309 mg/dL (65-110); Sodium 131 mmol/L (137-145)
[2022-03-26 06:11] LABS: Hematocrit 31.5 % (37.0-47.0); Hemoglobin 9.7 g/dL (12.0-15.0); Mean Corpuscular HGB Conc 30.8 g/dl (32-36); Mean Corpuscular Hemoglobin 31.7 pg (26-34); Mean Corpuscular Volume 102.9 fl (80-100); Platelet Count Result 120 k/mm3 (150-375); Red Blood Count 3.06 M/mm3 (4.2-5.4); Red Cell Distribution Width 13.9 % (11.5-14.5); White Blood Count 8.5 K/mm3 (4.5-10.0)
[2022-03-26] MEDS: INSULIN ASPART (*BKC) 100 UNITS/ML SUB-Q ×3 (09:26→17:40)
--- NOTE | 2022-03-26 09:27 | PM.IMPN ---
Progress Note: A&P Assessment and Plan (1) Acute respiratory failure with hypoxia: Code(s): J96.01 - Acute respiratory failure with hypoxia Status: Acute Assessment and Plan: The patient has acute hypoxic respiratory failure due to COPD exacerbation caused by influenza a infection. Patient has been started on renally dosed Tamiflu, p.o. prednisone and scheduled nebulizer treatments. Patient is satting at 96% on 2 L. Will wean oxygen as tolerated to maintain O2 sats above 90 given patient's longstanding history of COPD. Prednisone discontinued due to risk of worsening flu symptoms. (2) Influenza A: Code(s): J10.1 - Influenza due to other identified influenza virus with other respiratory manifestations Status: Acute Assessment and Plan: Treated with Tamiflu x5 days (3) COPD with acute exacerbation: Code(s): J44.1 - Chronic obstructive pulmonary disease with (acute) exacerbation Status: Chronic Assessment and Plan: COPD exacerbation secondary to flu A suspected Patient started on prednisone 40 mg p.o. for 7 days Nebulizer treatments Continue home inhaler Patient put on Tamiflu Wean oxygen to maintain O2 saturation above 90. (4) Candidiasis: Code(s): B37.9 - Candidiasis, unspecified Status: Acute Assessment and Plan: Patient came into the hospital with yeast infection in her right groin extending onto the right hip. Skin is malodorous. Patient has pain associated with the rash Nystatin powder prescribed 12 p.r.n. (5) Acute kidney injury superimposed on chronic kidney disease: Code(s): N17.9 - Acute kidney failure, unspecified; N18.9 - Chronic kidney disease, unspecified Status: Acute Assessment and Plan: Patient has acute kidney injury superimposed on chronic kidney disease stage 3. This is likely due to volume depletion however given the patient's report of sensation of incomplete bladder emptying in the past will check bladder scan to rule out possible component of obstructive uropathy. Will repeat BMP in a.m.. Creatinine increased today at 3. Hold Lasix. continue to monitor (6) DANNI (obstructive sleep apnea): Code(s): G47.33 - Obstructive sleep apnea (adult) (pediatric) Status: Chronic Assessment and Plan: Patient has obstructive sleep apnea as and is requesting CPAP/BiPAP. Auto titrating CPAP/BiPAP has been ordered. (7) Type 2 diabetes mellitus with hyperglycemia, with long-term current use of insulin: Code(s): E11.65 - Type 2 diabetes mellitus with hyperglycemia; Z79.4 - [employer] (current) use of insulin Status: Chronic Assessment and Plan: Type 2 diabetes mellitus with hyperglycemia. Patient is on p.o. steroids I anticipate some increased hyperglycemia. Will resume the patient's home insulin and will add sliding scale insulin with Accu-Cheks a.c. HS and hypoglycemia protocol. Plan Patient has been admitted as observation status. Time Spent With Patient Time with patient: Greater than 35 minutes Subjective Date/time seen: 03/26/22 09:27 Interval history: 71-year-old female with a history of type 2 diabetes, chronic kidney disease, COPD and a pacemaker due to sick sinus syndrome. Patient admitted to the hospital due to acute respiratory failure. Patient was found to be positive for influenza A. Patient up to chair during exam today. Patient states that her shortness of breath is chronic and no worse than usual. Still having a cough. Denies chest pain, nausea, vomiting, fever, body aches, chills and diarrhea. Review of Systems Review of Systems: All systems reviewed & are unremarkable except as noted in HPI and below Exam Narrative: GENERAL: Comfortable, no acute distress, obese HENMT: moist mucous membranes EYES: EOM intact b/l NECK: no lymphadenopathy RESPIRATORY: Diffuse expiratory wheezing CARDIO: RRR GI: soft, nont
[2022-03-26] MEDS: ENOXAPARIN 30 MG/0.3 ML SYRINGE SUB-Q (09:32)
[2022-03-26] MEDS: lisinopriL 20 MG TABLET PO (09:32)
[2022-03-26] MEDS: OSELTAMIVIR PHOSPHATE ORAL SUSP 30 MG/5 ML SYRINGE PO (09:32)
[2022-03-26] MEDS: carvediloL 12.5 MG TABLET PO ×2 (09:33→20:18)
[2022-03-26] MEDS: hydrOXYzine HCL 10 MG TABLET PO (09:33)
[2022-03-26] MEDS: DULoxetine HCL 60 MG CAPSULE.DR PO (09:33)
[2022-03-26] MEDS: predniSONE 20 MG TABLET 40 MG PO (09:34)
[2022-03-26] MEDS: FUROSEMIDE 40 MG TABLET PO (09:34)
[2022-03-26] MEDS: SIMVASTATIN 20 MG TABLET 40 MG PO (09:34)
[2022-03-26] MEDS: TOLNAFTATE 1% POWDER 45 GM BTL 1 APPLIC TOPICAL (09:35)
[2022-03-26] MEDS: clonazePAM (*CRX) 0.5 MG TABLET 1 MG PO ×2 (09:39→17:18)
[2022-03-26 12:40] LABS: Glucose Point of Care 322 mg/dl (65-105)
[2022-03-26] MEDS: HYDROcodone/acetaminophen (*CRX) 5-325 MG TABLET 1 TAB PO ×2 (13:09→20:17)
[2022-03-26 17:29] LABS: Glucose Point of Care 329 mg/dl (65-105)
[2022-03-26] MEDS: INSULIN GLARGINE (*BKC) 100 UNITS/ML 25 UNITS SUB-Q (20:18)
[2022-03-26 20:57] LABS: Glucose Point of Care 458 mg/dl (65-105)
[2022-03-27] VITALS (14 sets, daily range): BP systolic 98–121; BP diastolic 55–68; PULSE 61–82; RESP 16–22; TEMP 36.4–36.7; O2SAT 93–100
[2022-03-27] MEDS: ALBUTEROL SULFATE NEB 2.5 MG/3 ML INH 5 MG INHALATION ×4 (01:50→20:19)
[2022-03-27] MEDS: IPRATROPIUM BR 0.02% INH SOLN 0.5 MG/2.5 ML VIAL INHALATION ×4 (01:50→20:20)
[2022-03-27 05:55] LABS: Hematocrit 30.8 % (37.0-47.0); Hemoglobin 9.6 g/dL (12.0-15.0); Immature Platelet Fraction Pct 5.9 % (0.9-11.2); Mean Corpuscular HGB Conc 31.2 g/dl (32-36); Mean Corpuscular Hemoglobin 31.8 pg (26-34); Mean Platelet Volume 10.9 fl (7.4-10.4); Platelet Count Result 133 k/mm3 (150-375); Red Blood Count 3.02 M/mm3 (4.2-5.4); Red Cell Distribution Width 13.8 % (11.5-14.5); White Blood Count 8.6 K/mm3 (4.5-10.0)
[2022-03-27] MEDS: INSULIN ASPART (*BKC) 100 UNITS/ML 14 UNITS SUB-Q (05:59)
[2022-03-27 06:12] LABS: Alanine Aminotransferase 10 U/L (6-35); Albumin Level 3.1 g/dL (3.5-5.1); Alkaline Phosphatase 60 U/L (38-126); Anion Gap 7 mmol/L (8-16); Aspartate Amino Transferase 15 U/L (14-36); Bilirubin,Total 0.7 mg/dL (0.2-1.3); Blood Urea Nitrogen 70 mg/dL (7-17); Carbon Dioxide 28 mmol/L (22-30); Chloride 100 mmol/L (98-107); Estimated CRCL calculation 23 ml/min; Estimated Glomerular Filt Rate 16; Glucose 336 mg/dL (65-110); Potassium 4.1 mmol/L (3.4-5.0); Sodium 135 mmol/L (137-145)
[2022-03-27 06:27] LABS: Glucose Point of Care 496 mg/dl (65-105)
[2022-03-27 08:57] LABS: Glucose Point of Care 310 mg/dl (65-105)
[2022-03-27] MEDS: INSULIN ASPART (*BKC) 100 UNITS/ML SUB-Q ×2 (09:21→13:42)
[2022-03-27] MEDS: clonazePAM (*CRX) 0.5 MG TABLET 1 MG PO ×2 (09:23→17:31)
[2022-03-27] MEDS: DULoxetine HCL 60 MG CAPSULE.DR PO (09:24)
[2022-03-27] MEDS: carvediloL 12.5 MG TABLET PO ×2 (09:24→20:59)
[2022-03-27] MEDS: hydrOXYzine HCL 10 MG TABLET PO (09:24)
[2022-03-27] MEDS: ENOXAPARIN 30 MG/0.3 ML SYRINGE SUB-Q (09:24)
[2022-03-27] MEDS: lisinopriL 20 MG TABLET PO (09:24)
[2022-03-27] MEDS: TOLNAFTATE 1% POWDER 45 GM BTL 1 APPLIC TOPICAL ×2 (09:25→21:00)
[2022-03-27] MEDS: SIMVASTATIN 20 MG TABLET 40 MG PO (09:25)
[2022-03-27] MEDS: OSELTAMIVIR PHOSPHATE ORAL SUSP 30 MG/5 ML SYRINGE PO (09:25)
--- NOTE | 2022-03-27 09:35 | PM.IMPN ---
Progress Note: A&P Assessment and Plan (1) Acute respiratory failure with hypoxia: Code(s): J96.01 - Acute respiratory failure with hypoxia Status: Acute Assessment and Plan: The patient has acute hypoxic respiratory failure due to COPD exacerbation caused by influenza a infection. Patient was initially started on renally dosed Tamiflu, p.o. prednisone and scheduled nebulizer treatments. Patient is satting at 93% on 1 L. Will wean oxygen as tolerated to maintain O2 sats above 90 given patient's longstanding history of COPD. Patient is not on oxygen at home Prednisone discontinued due to risk of worsening flu symptoms. Patient on day 3 of Tamiflu Possible discharge tomorrow pending JESSICA, oxygen saturation and respiratory physical exam (2) Influenza A: Code(s): J10.1 - Influenza due to other identified influenza virus with other respiratory manifestations Status: Acute Assessment and Plan: Treated with Tamiflu x5 days (3) COPD with acute exacerbation: Code(s): J44.1 - Chronic obstructive pulmonary disease with (acute) exacerbation Status: Chronic Assessment and Plan: COPD exacerbation secondary to flu A suspected Patient started on prednisone 40 mg p.o. for 7 days Nebulizer treatments Continue home inhaler Patient put on Tamiflu Wean oxygen to maintain O2 saturation above 90. (4) Candidiasis: Code(s): B37.9 - Candidiasis, unspecified Status: Acute Assessment and Plan: Patient came into the hospital with yeast infection in her right groin extending onto the right hip. Skin is malodorous. Patient has pain associated with the rash Nystatin powder prescribed 12 p.r.n. (5) Acute kidney injury superimposed on chronic kidney disease: Code(s): N17.9 - Acute kidney failure, unspecified; N18.9 - Chronic kidney disease, unspecified Status: Acute Assessment and Plan: Patient has acute kidney injury superimposed on chronic kidney disease stage 3. This is likely due to volume depletion however given the patient's report of sensation of incomplete bladder emptying in the past will check bladder scan to rule out possible component of obstructive uropathy. Hold Lasix. BUN 70 and creatinine 2.9 today Nephrology consulted continue to monitor (6) DANNI (obstructive sleep apnea): Code(s): G47.33 - Obstructive sleep apnea (adult) (pediatric) Status: Chronic Assessment and Plan: Patient has obstructive sleep apnea as and is requesting CPAP/BiPAP. Auto titrating CPAP/BiPAP has been ordered. (7) Type 2 diabetes mellitus with hyperglycemia, with long-term current use of insulin: Code(s): E11.65 - Type 2 diabetes mellitus with hyperglycemia; Z79.4 - [facility] (current) use of insulin Status: Chronic Assessment and Plan: Type 2 diabetes mellitus with hyperglycemia. Patient is on p.o. steroids I anticipate some increased hyperglycemia. Patient on Lantus 25 units NovoLog of 4-8 units Accu-Cheks a.c. HS and hypoglycemia protocol. Plan Patient has been admitted as observation status. Time Spent With Patient Time with patient: Greater than 35 minutes Subjective Date/time seen: 03/27/22 09:35 Interval history: 71-year-old female with a history of type 2 diabetes, chronic kidney disease, COPD and a pacemaker due to sick sinus syndrome. Patient admitted to the hospital due to acute respiratory failure. Patient was found to be positive for influenza A. Patient lying in bed resting when being interviewed. Patient states that she has been having some nausea and a cough. Patient's shortness of breath is at its baseline. She denies chest pain, vomiting, diarrhea and fever. Review of Systems Review of Systems: All systems reviewed & are unremarkable except as noted in HPI and below Exam Narrative: GENERAL: Comfortable, no acute distress, obese HENMT: moist mucous memb
--- NOTE | 2022-03-27 10:31 | PM.CNNEP ---
Assessment and Plan Assessment and plan (1) JESSICA (acute kidney injury): Code(s): N17.9 - Acute kidney failure, unspecified Status: Acute Assessment and Plan: creatinine up to 3.0mg/dl on admission given her history of fluctuating kidney function -- is this really acute or possibly progression of her known CKD??? has remained about the same since hospitalization however, creatinine noted to be 1.7mg/dl in August of 2021 check urine electrolytes, urine eosinophils, CPK, and renal ultrasound hold UNA-I and diuretics for now IVFs as tolerated by respiratory status follow trend of repeat labs and UOP (2) Chronic kidney disease, stage IV (severe): Code(s): N18.4 - Chronic kidney disease, stage 4 (severe) Status: Chronic Assessment and Plan: renal function/creatinine seems to have fluctuated to extremes in the last few years seems to run ~ 1.7 - 2.4mg/dl in the last year presumably due to DM, HTN, CHF, DANNI, vascular disease, and age (3) Acute respiratory failure with hypoxia: Code(s): J96.01 - Acute respiratory failure with hypoxia Status: Acute Assessment and Plan: suspected COPD exacerbation triggered by #4 continue supplemental oxygen, nebulizer treatments, and steroids wean oxygen as tolerated (4) Influenza A: Code(s): J10.1 - Influenza due to other identified influenza virus with other respiratory manifestations Status: Acute Assessment and Plan: on Tamiflu continue supportive therapy (5) Type 2 diabetes mellitus with hyperglycemia, with long-term current use of insulin: Code(s): E11.65 - Type 2 diabetes mellitus with hyperglycemia; Z79.4 - terminal gauger supervisor (current) use of insulin Status: Chronic Assessment and Plan: follow accuchecks glycemic control Will continue to follow. History of Present Illness Reason for Consult Consult date: 03/27/22 Reason for consult: acute renal failure (on chronic kidney disease) Chief Complaint Chief complaint: COPD Exacerbation History of Present Illness Narrative: The patient is a 71-year-old female with a past medical history as outlined below who presented to [facility] Emergency room via EMS for further evaluation of weakness, cough, and cold symptoms. the patient reports that for the last week she has had increasing cough of thick current thicker sputum although the sputum itself is clear in color. This is further complicated by the fact that she current lives with her granddaughter and her granddaughter apparently brought home a virus from work. Along with the cough, she has had poor oral intake for last 3-4 days and reports that this is led to increasing weakness. Prior to her evaluation ER, she reported that when she went to ambulate from the bathroom, she was unable to support herself and slid to the floor. Given these multitude of symptoms, she called the EMS and she was subsequently transported to the ER for further assessment. Workup and evaluation emergency room demonstrated the patient be relatively hypotensive and hypoxic with oxygen saturations in the 89th percentile range. Supplemental oxygen was applied which improved her oxygenation and she received a 1 L fluid bolus was also improved her blood pressure is well. She reported no fevers or chills the or any other symptoms with regard to nausea, vomiting, diarrhea, dysuria, or hematuria. Routine blood test demonstrated an elevated BUN and creatinine above her baseline but no critical electrolyte abnormalities. Her chest x-ray was negative but her exam was somewhat consistent with what appeared to be a COPD exacerbation. influenza and scope in 19 testing were done and she was found to be positive for influenza A. given her constellation of symptoms that led to her presentation to the emergency room coupled with her laboratory abnormalities and respiratory status, she was admitted the hospital for further
[2022-03-27 12:20] LABS: Glucose Point of Care 283 mg/dl (65-105)
[2022-03-27 17:21] LABS: Glucose Point of Care 200 mg/dl (65-105)
[2022-03-27] MEDS: HYDROcodone/acetaminophen (*CRX) 5-325 MG TABLET 1 TAB PO (20:58)
[2022-03-27] MEDS: INSULIN GLARGINE (*BKC) 100 UNITS/ML 25 UNITS SUB-Q (20:59)
[2022-03-27 21:31] LABS: Glucose Point of Care 230 mg/dl (65-105)
[2022-03-28] VITALS (11 sets, daily range): BP systolic 101–120; BP diastolic 55–68; PULSE 61–72; RESP 18–22; TEMP 36.8–37; O2SAT 92–94
[2022-03-28] MEDS: IPRATROPIUM BR 0.02% INH SOLN 0.5 MG/2.5 ML VIAL INHALATION ×3 (02:05→14:10)
[2022-03-28] MEDS: ALBUTEROL SULFATE NEB 2.5 MG/3 ML INH 5 MG INHALATION ×3 (02:05→14:10)
[2022-03-28 05:50] LABS: Hematocrit 31.9 % (37.0-47.0); Hemoglobin 9.8 g/dL (12.0-15.0); Immature Platelet Fraction Pct 5.3 % (0.9-11.2); Mean Corpuscular HGB Conc 30.7 g/dl (32-36); Mean Corpuscular Hemoglobin 30.9 pg (26-34); Mean Corpuscular Volume 100.6 fl (80-100); Platelet Count Result 131 k/mm3 (150-375); Red Blood Count 3.17 M/mm3 (4.2-5.4); Red Cell Distribution Width 14.1 % (11.5-14.5); White Blood Count 9.3 K/mm3 (4.5-10.0)
[2022-03-28 06:02] LABS: Anion Gap 6 mmol/L (8-16); Blood Urea Nitrogen 74 mg/dL (7-17); Carbon Dioxide 25 mmol/L (22-30); Chloride 101 mmol/L (98-107); Estimated CRCL calculation 23 ml/min; Estimated Glomerular Filt Rate 16; Glucose 176 mg/dL (65-110); Potassium 3.6 mmol/L (3.4-5.0); Sodium 132 mmol/L (137-145)
[2022-03-28 08:35] LABS: Glucose Point of Care 172 mg/dl (65-105)
[2022-03-28] MEDS: clonazePAM (*CRX) 0.5 MG TABLET 1 MG PO ×2 (09:23→17:01)
[2022-03-28] MEDS: hydrOXYzine HCL 10 MG TABLET PO (09:23)
[2022-03-28] MEDS: lisinopriL 20 MG TABLET PO (09:23)
[2022-03-28] MEDS: DULoxetine HCL 60 MG CAPSULE.DR PO (09:23)
[2022-03-28] MEDS: SIMVASTATIN 20 MG TABLET 40 MG PO (09:23)
[2022-03-28] MEDS: ENOXAPARIN 30 MG/0.3 ML SYRINGE SUB-Q (09:23)
[2022-03-28] MEDS: carvediloL 12.5 MG TABLET PO ×2 (09:24→20:10)
[2022-03-28] MEDS: TOLNAFTATE 1% POWDER 45 GM BTL 1 APPLIC TOPICAL ×2 (09:26→20:12)
[2022-03-28] MEDS: OSELTAMIVIR PHOSPHATE ORAL SUSP 30 MG/5 ML SYRINGE PO (11:09)
--- NOTE | 2022-03-28 12:13 | PM.PNNEP ---
Progress Note: A&P Assessment and Plan (1) JESSICA (acute kidney injury): Code(s): N17.9 - Acute kidney failure, unspecified Status: Acute Assessment and Plan: creatinine up to 3.0mg/dl on admission given her history of fluctuating kidney function -- is this really acute or possibly progression of her known CKD??? has remained about the same since hospitalization however, creatinine noted to be 1.7mg/dl in August of 2021 await results of urine electrolytes, urine eosinophils, CPK, and renal ultrasound hold UNA-I and diuretics for now IVFs as tolerated by respiratory status follow trend of repeat labs and UOP (2) Chronic kidney disease, stage IV (severe): Code(s): N18.4 - Chronic kidney disease, stage 4 (severe) Status: Chronic Assessment and Plan: renal function/creatinine seems to have fluctuated to extremes in the last few years seems to run ~ 1.7 - 2.4mg/dl in the last year presumably due to DM, HTN, CHF, DANNI, vascular disease, and age (3) Acute respiratory failure with hypoxia: Code(s): J96.01 - Acute respiratory failure with hypoxia Status: Acute Assessment and Plan: suspected COPD exacerbation triggered by #4 continue supplemental oxygen, nebulizer treatments, and steroids wean oxygen as tolerated (4) Influenza A: Code(s): J10.1 - Influenza due to other identified influenza virus with other respiratory manifestations Status: Acute Assessment and Plan: on Tamiflu continue supportive therapy (5) Type 2 diabetes mellitus with hyperglycemia, with long-term current use of insulin: Code(s): E11.65 - Type 2 diabetes mellitus with hyperglycemia; Z79.4 - [facility] (current) use of insulin Status: Chronic Assessment and Plan: follow accuchecks glycemic control Will continue to follow. Subjective Date/time seen: 03/28/22 12:13 Respiratory status is about the same -- she continues to have a productive cough of thick white sputum; renal function remains stable (no better, no worse) by AM; no apparent distress noted. Exam Narrative: General: elderly female in NAD Heart: normal S1 and S2; no rub Lungs: scattered wheezes and rhonchi bilaterally Abdomen: soft, nontender, nondistended, positive bowel sounds Extremities: no cyanosis or clubbing; no edema Skin: warm and dry Objective Data Vital Signs Vital Signs: Vital Signs Temp Pulse Resp BP Pulse Ox O2 Del Method O2 Flow Rate 03/28/22 10:41 Nasal Cannula 2 03/28/22 09:24 67 03/28/22 08:19 63 18 03/28/22 08:19 63 18 92 Nasal Cannula 2 03/28/22 05:16 98.6 F 61 22 H 101/55 L 92 03/28/22 02:18 70 18 03/28/22 02:05 72 20 Intake/Output Intake/Output: Intake & Output 03/26/22 03/27/22 03/28/22 03/29/22 23:59 23:59 23:59 23:59 Intake Total 1062 1442 986 Output Total 250 650 100 Balance 812 792 886 Meds/Results Medications: Active Medications Generic Name Dose Route Start Last Admin Trade Name Freq PRN Reason Stop Dose Admin Hydrocodone Bitart/Acetaminophen 1 tab 03/25/22 05:49 03/28/22 20:11 Hydrocodone/Acetaminophen (*Crx) 5-325 Mg Tablet PO 1 tab QID PRN Administration Pain 7-10 Albuterol 5 mg 03/25/22 02:00 03/28/22 14:10 Albuterol Sulfate Neb 2.5 Mg/3 Ml Inh INHALATION 5 mg Q6HRT CAROL Administration Carvedilol 12.5 mg 03/25/22 09:00 03/28/22 20:10 Carvedilol 12.5 Mg Tablet PO 12.5 mg Q12HR CAROL Administration Clonazepam 1 mg 03/25/22 09:00 03/28/22 17:01 Clonazepam (*Crx) 0.5 Mg Tablet PO 1 mg BID CAROL Administration Dextrose 12.5 gm 03/25/22 05:51 Dextrose 50% 25 Gm/50 Ml Syringe IV PUSH PRN PRN Hypoglycemia Protocol Duloxetine HCl 60 mg 03/25/22 09:00 03/28/22 09:23 Duloxetine Hcl 60 Mg Capsule.Dr PO 60 mg DAILY CAROL Administration Enoxaparin Sodium 30 mg 03/25/22 09:00 12
--- NOTE | 2022-03-28 12:13 | P.PNNP_ITS ---
Progress Note: A&P Assessment and Plan (1) JESSICA (acute kidney injury): Code(s): N17.9 - Acute kidney failure, unspecified Status: Acute Assessment and Plan: * creatinine up to 3.0mg/dl on admission * given her history of fluctuating kidney function -- is this really acute or possibly progression of her known CKD??? * has remained about the same since hospitalization * however, creatinine noted to be 1.7mg/dl in August of 2021 * await results of urine electrolytes, urine eosinophils, CPK, and renal ultrasound * hold UNA-I and diuretics for now * IVFs as tolerated by respiratory status * follow trend of repeat labs and UOP (2) Chronic kidney disease, stage IV (severe): Code(s): N18.4 - Chronic kidney disease, stage 4 (severe) Status: Chronic Assessment and Plan: * renal function/creatinine seems to have fluctuated to extremes in the last few years * seems to run ~ 1.7 - 2.4mg/dl in the last year * presumably due to DM, HTN, CHF, DANNI, vascular disease, and age (3) Acute respiratory failure with hypoxia: Code(s): J96.01 - Acute respiratory failure with hypoxia Status: Acute Assessment and Plan: * suspected COPD exacerbation triggered by #4 * continue supplemental oxygen, nebulizer treatments, and steroids * wean oxygen as tolerated (4) Influenza A: Code(s): J10.1 - Influenza due to other identified influenza virus with other respiratory manifestations Status: Acute Assessment and Plan: * on Tamiflu * continue supportive therapy (5) Type 2 diabetes mellitus with hyperglycemia, with long-term current use of insulin: Code(s): E11.65 - Type 2 diabetes mellitus with hyperglycemia; Z79.4 - termite control service representative (current) use of insulin Status: Chronic Assessment and Plan: * follow accuchecks * glycemic control Will continue to follow. Subjective Date/time seen: 03/28/22 12:13 Respiratory status is about the same -- she continues to have a productive cough of thick white sputum; renal function remains stable (no better, no worse) by AM; no apparent distress noted. Exam Narrative: General: elderly female in NAD Heart: normal S1 and S2; no rub Lungs: scattered wheezes and rhonchi bilaterally Abdomen: soft, nontender, nondistended, positive bowel sounds Extremities: no cyanosis or clubbing; no edema Skin: warm and dry Objective Data Vital Signs Vital Signs: Vital Signs Temp Pulse Resp BP Pulse Ox O2 Del Method O2 Flow Rate 03/28/22 10:41 Nasal Cannula 2 03/28/22 09:24 67 03/28/22 08:19 63 18 03/28/22 08:19 63 18 92 Nasal Cannula 2 03/28/22 05:16 98.6 F 61 22 H 101/55 L 92 03/28/22 02:18 70 18 03/28/22 02:05 72 20 Intake/Output Intake/Output: Intake & Output 03/26/22 03/27/22 03/28/22 03/29/22 23:59 23:59 23:59 23:59 Intake Total 1062 1442 986 Output Total 250 650 100 Balance 812 792 886 Meds/Results Medications: Active Medications Generic Name Dose Route Start Last Admin Trade Name Freq PRN Reason Stop Dose Admin Hydrocodone Bitart/Acetaminophen 1 tab 03/25/22 05:49 03/28/22 20:11 Hydrocodone/Acetaminophen (*C
[2022-03-28 12:43] LABS: Glucose Point of Care 203 mg/dl (65-105)
[2022-03-28] MEDS: INSULIN ASPART (*BKC) 100 UNITS/ML SUB-Q ×2 (12:58→18:08)
[2022-03-28 17:39] LABS: Glucose Point of Care 309 mg/dl (65-105)
[2022-03-28] MEDS: INSULIN GLARGINE (*BKC) 100 UNITS/ML 25 UNITS SUB-Q (20:10)
[2022-03-28] MEDS: HYDROcodone/acetaminophen (*CRX) 5-325 MG TABLET 1 TAB PO (20:11)
[2022-03-28] MEDS: guaiFENesin 12 HR 600 MG TABCR PO (20:11)
--- NOTE | 2022-03-28 21:21 | PM.IMPN ---
Progress Note: A&P Assessment and Plan (1) Acute respiratory failure with hypoxia: Code(s): J96.01 - Acute respiratory failure with hypoxia Status: Acute Assessment and Plan: The patient has acute hypoxic respiratory failure due to COPD exacerbation caused by influenza a infection. Patient was initially started on renally dosed Tamiflu, p.o. prednisone and scheduled nebulizer treatments. spO2 93% on 2L NC. Patient is not on oxygen at home. Wean as tolerated. Prednisone discontinued due to risk of worsening flu symptoms. Completed 5 days Tamiflu on 03/28 (2) Influenza A: Code(s): J10.1 - Influenza due to other identified influenza virus with other respiratory manifestations Status: Acute Assessment and Plan: Treated with Tamiflu x5 days, renally dosed as above. (3) COPD with acute exacerbation: Code(s): J44.1 - Chronic obstructive pulmonary disease with (acute) exacerbation Status: Chronic Assessment and Plan: COPD exacerbation secondary to flu A suspected Continue scheduled Nebulizer treatments Prednisone stopped due to concern for secondary bacterial pneumonia with influenza. Consider resuming if wheezing persists. Wean oxygen to maintain O2 saturation above 90. (4) Candidiasis: Code(s): B37.9 - Candidiasis, unspecified Status: Acute Assessment and Plan: Patient came into the hospital with yeast infection in her right groin extending onto the right hip. Skin was malodorous. Patient has pain associated with the rash Continue Nystatin powder BID x 14 days (5) Acute kidney injury superimposed on chronic kidney disease: Code(s): N17.9 - Acute kidney failure, unspecified; N18.9 - Chronic kidney disease, unspecified Status: Acute Assessment and Plan: Patient has acute kidney injury superimposed on chronic kidney disease stage 3. This is likely due to volume depletion however given the patient's report of sensation of incomplete bladder emptying in the past will check bladder scan to rule out possible component of obstructive uropathy. Hold Lasix. BUN 74, creatinine 2.9, eGFR 16 Nephrology consulted and appreciate recommendations. Hold nephrotoxic agents. (6) DANNI (obstructive sleep apnea): Code(s): G47.33 - Obstructive sleep apnea (adult) (pediatric) Status: Chronic Assessment and Plan: Patient has obstructive sleep apnea as and is requesting CPAP/BiPAP. Auto titrating CPAP/BiPAP has been ordered. (7) Type 2 diabetes mellitus with hyperglycemia, with long-term current use of insulin: Code(s): E11.65 - Type 2 diabetes mellitus with hyperglycemia; Z79.4 - penitentiary (current) use of insulin Status: Chronic Assessment and Plan: Type 2 diabetes mellitus with hyperglycemia. Patient is on p.o. steroids I anticipate some increased hyperglycemia. Patient on Lantus 25 units NovoLog of 4-8 units Accu-Cheks a.c. HS and hypoglycemia protocol. Plan Code status: full code Disposition: inpatient Discharge plan: SNF rehab Time Spent With Patient Time with patient: 15 - 25 minutes Subjective Date/time seen: 03/28/22 21:21 Interval history: She continues to have cough that is productive and thick, white. No chest pain or SOB. Appetite is fair. No nausea, vomiting, diarrhea or fevers. Review of Systems Review of Systems: All systems reviewed & are unremarkable except as noted in HPI and below Exam Narrative: GENERAL: no acute distress, obese adult female sitting up in the bed. HEENT: Normocephalic. sclera nonicteric. PERRL. EOM intact. moist mucous membranes NECK: no JVD RESPIRATORY: RR unlabored at rest. Lung sounds with scattered rhonchi bilaterally. No wheezing. CARDIO: Normal S1 and S2 regular rate and rhythm. No murmurs. GI: soft, obese, nontender, bowel sounds present SKIN: Warm & dry. EXTREMITIES: Grossly normal ROM bilaterally. no edema, redness or tenderness
[2022-03-28 22:27] LABS: Glucose Point of Care 194 mg/dl (65-105)
[2022-03-29] VITALS (11 sets, daily range): BP systolic 94–101; BP diastolic 49–58; PULSE 66–71; RESP 18–20; TEMP 36.3–36.7; O2SAT 92–97
--- NOTE | 2022-03-29 00:48 | PCRCNOTE ---
window of time for administration has passed. see next available administration.
[2022-03-29] MEDS: IPRATROPIUM BR 0.02% INH SOLN 0.5 MG/2.5 ML VIAL INHALATION (03:29)
[2022-03-29] MEDS: ALBUTEROL SULFATE NEB 2.5 MG/3 ML INH 5 MG INHALATION (03:29)
[2022-03-29 06:51] LABS: Albumin Level 3.3 g/dL (3.5-5.1); Anion Gap 9 mmol/L (8-16); Blood Urea Nitrogen 86 mg/dL (7-17); Calcium 7.5 mg/dL (8.4-10.2); Carbon Dioxide 25 mmol/L (22-30); Chloride 102 mmol/L (98-107); Estimated CRCL calculation 22 ml/min; Estimated Glomerular Filt Rate 15; Glucose 157 mg/dL (65-110); Sodium 136 mmol/L (137-145)
--- NOTE | 2022-03-29 08:10 | PM.IMPN ---
Progress Note: A&P Assessment and Plan (1) Acute respiratory failure with hypoxia: Code(s): J96.01 - Acute respiratory failure with hypoxia Status: Acute Assessment and Plan: The patient has acute hypoxic respiratory failure due to COPD exacerbation caused by influenza a infection. Patient was initially started on renally dosed Tamiflu, p.o. prednisone and scheduled nebulizer treatments. spO2 93% on 2L NC. Patient is not on oxygen at home. Wean as tolerated. Prednisone discontinued due to risk of worsening flu symptoms. Completed 5 days Tamiflu on 03/28 (2) Influenza A: Code(s): J10.1 - Influenza due to other identified influenza virus with other respiratory manifestations Status: Acute Assessment and Plan: Treated with Tamiflu x5 days, renally dosed as above. (3) COPD with acute exacerbation: Code(s): J44.1 - Chronic obstructive pulmonary disease with (acute) exacerbation Status: Chronic Assessment and Plan: COPD exacerbation secondary to flu A suspected Continue scheduled Nebulizer treatments Prednisone stopped due to concern for secondary bacterial pneumonia with influenza. Consider resuming if wheezing persists. Wean oxygen to maintain O2 saturation above 90. Repeat chest x-ray (4) Candidiasis: Code(s): B37.9 - Candidiasis, unspecified Status: Acute Assessment and Plan: Patient came into the hospital with yeast infection in her right groin extending onto the right hip. Skin was malodorous. Patient has pain associated with the rash Continue Nystatin powder BID x 14 days (5) Acute kidney injury superimposed on chronic kidney disease: Code(s): N17.9 - Acute kidney failure, unspecified; N18.9 - Chronic kidney disease, unspecified Status: Acute Assessment and Plan: Patient has acute kidney injury superimposed on chronic kidney disease stage 3. This is likely due to volume depletion however given the patient's report of sensation of incomplete bladder emptying in the past will check bladder scan to rule out possible component of obstructive uropathy. Hold Lasix for now as BP is soft and ?dehydration. Hold nephrotoxic agents. 03/29/22 BUN 86, creatinine 3.1, GFR 15 and slightly increased. Trial gentle hydration. Add daily weights. I/O cumulative 5970 mL intake/1150 mL output/ +5 urinary voids in the past 24 hours Nephrology consulted and appreciate recommendations. (6) DANNI (obstructive sleep apnea): Code(s): G47.33 - Obstructive sleep apnea (adult) (pediatric) Status: Chronic Assessment and Plan: Patient has obstructive sleep apnea as and is requesting CPAP/BiPAP. Auto titrating CPAP/BiPAP has been ordered. (7) Type 2 diabetes mellitus with hyperglycemia, with long-term current use of insulin: Code(s): E11.65 - Type 2 diabetes mellitus with hyperglycemia; Z79.4 - intermediate (current) use of insulin Status: Chronic Assessment and Plan: Type 2 diabetes mellitus with hyperglycemia. Patient is on p.o. steroids I anticipate some increased hyperglycemia. Patient on Lantus 25 units Glucose 178 to 309 mg/dL in the past 24 hours. Add aspart 4 units with meals plus high dose sliding scale insulin. Accu-Cheks a.c. HS and hypoglycemia protocol. Plan Code status: full code Disposition: inpatient Discharge plan: SNF rehab Time Spent With Patient Time with patient: 15 - 25 minutes Subjective Date/time seen: 03/29/22 08:10 Nursing reports the patient states she is depressed. The patient states she wants to go home. She denies chest pain, SOB, abd pain, N/V/D or constipation. She denies cough. Her breathing, however, appears more labored today. Review of Systems Review of Systems: All systems reviewed & are unremarkable except as noted in HPI and below Exam Narrative: GENERAL: no acute distress, obese adult female sitting up in the bed. HEENT: Normocephalic. sclera nonict
[2022-03-29 08:32] LABS: Glucose Point of Care 207 mg/dl (65-105)
[2022-03-29] MEDS: guaiFENesin 12 HR 600 MG TABCR PO ×2 (09:12→20:24)
[2022-03-29] MEDS: DULoxetine HCL 60 MG CAPSULE.DR PO (09:12)
[2022-03-29] MEDS: clonazePAM (*CRX) 0.5 MG TABLET 1 MG PO ×2 (09:12→16:14)
[2022-03-29] MEDS: carvediloL 12.5 MG TABLET PO ×2 (09:12→20:24)
[2022-03-29] MEDS: INSULIN ASPART (*BKC) 100 UNITS/ML SUB-Q ×3 (09:13→17:58)
[2022-03-29] MEDS: SIMVASTATIN 20 MG TABLET 40 MG PO (09:13)
[2022-03-29] MEDS: hydrOXYzine HCL 10 MG TABLET PO (09:13)
[2022-03-29] MEDS: ENOXAPARIN 30 MG/0.3 ML SYRINGE SUB-Q (09:13)
[2022-03-29] MEDS: TOLNAFTATE 1% POWDER 45 GM BTL 1 APPLIC TOPICAL ×2 (10:37→20:24)
[2022-03-29] MEDS: SODIUM CHLORIDE 0.9% IV 1,000 ML 75 ML IV CONT (10:37)
[2022-03-29 12:10] LABS: Glucose Point of Care 186 mg/dl (65-105)
[2022-03-29 16:55] LABS: Anion Gap 7 mmol/L (8-16); Blood Urea Nitrogen 89 mg/dL (7-17); Calcium 7.5 mg/dL (8.4-10.2); Carbon Dioxide 27 mmol/L (22-30); Chloride 98 mmol/L (98-107); Estimated CRCL calculation 20 ml/min; Estimated Glomerular Filt Rate 14; Glucose 185 mg/dL (65-110); Potassium 4.1 mmol/L (3.4-5.0); Sodium 132 mmol/L (137-145)
[2022-03-29 17:17] LABS: Glucose Point of Care 216 mg/dl (65-105)
[2022-03-29 20:26] LABS: Glucose Point of Care 186 mg/dl (65-105)
[2022-03-29] MEDS: INSULIN GLARGINE (*BKC) 100 UNITS/ML 25 UNITS SUB-Q (20:26)
[2022-03-30] VITALS (15 sets, daily range): BP systolic 100–115; BP diastolic 45–58; PULSE 68–81; RESP 16–22; TEMP 35.7–36.6; O2SAT 83–92
--- NOTE | 2022-03-30 | ECHO_ITS ---
Patient Info Name: Pita Lowry Age: 71 years : 1950 Gender: Female Ht: 66 in Wt: 283 lbs BSA: 2.52 m2 HR: 70 bpm BP: 100 / 54 mmHg Technical Quality: Poor Exam Date: 03/30/2022 2:09 PM Exam Location: [facility] Patient Status: Inpatient Admit Date: 03/26/2022 Staff Ordering Physician: Leatha Reid APRN [employer] Supervisor: Bassem Rehman RDCS, RT Attending Provider: Evelyne Bonilla DO Referring Physician: Jeanette ARROYO; Exam Type: CA echo dop color flow w con Study Info Indications R06.00 - Dyspnea, unspecified Strain analysis performed. Summary 1. Left ventricular chamber dimension is normal. 2. Definity contrast administered improved wall motion interpretation. 3. Left ventricular systolic function is normal, estimated at 60-65%. 4. There is moderately increased left ventricular wall thickness. 5. The left ventricular diastolic function is grade I diastolic dysfunction. 6. E/e' 8 is minimally elevated. 7. The aortic valve is not well visualized. Cannot determine number of aortic valve leaflets. 8. There is mild aortic valve stenosis based a peak velocity of 140.34 cm/s, mean gradient of 4 mmHg, and aortic valve area of 1.92 cm2. Left Ventricle Definity contrast administered improved wall motion interpretation. E/e' 8 is minimally elevated. Left ventricular chamber dimension is normal. Left ventricular systolic function is normal, estimated at 60-65%. There is moderately increased left ventricular wall thickness. The left ventricular diastolic function is grade I diastolic dysfunction. Right Ventricle Right ventricular chamber dimension is not well visualized. Left Atria Left atrial chamber dimension is normal. Right Atria Right atrial chamber dimension is not well visualized. Aortic Valve The aortic valve is not well visualized. Cannot determine number of aortic valve leaflets. There is mild aortic valve stenosis based a peak velocity of 140.34 cm/s, mean gradient of 4 mmHg, and aortic valve area of 1.92 cm2. There is no aortic valve regurgitation. Pulmonic Valve The pulmonic valve is not well visualized. There is no pulmonic regurgitation. Mitral Valve There is no mitral valve stenosis. There is no mitral valve regurgitation. Tricuspid Valve The tricuspid valve leaflets are not well visualized. There is no tricuspid valve regurgitation. Pericardium/Pleural There is no pericardial effusion. Inferior Vena Cava Normal inferior vena cava with >50% collapse upon inspiration consistent with normal right atrial pressure, 5 mmHg. Aorta The aortic root size at the sinus of Valsalva is not well visualized. Left Ventricular Outflow Tract Name Value Normal LVOT 2D LVOT Diameter 2.06 cm LVOT Doppler LVOT Peak Gradient 3 mmHg LVOT Mean Gradient 2 mmHg LVOT VTI 18.46 cm LVOT VTI/AV VTI Ratio 0.58 LVOT Stroke Volume 61.27 ml LVOT CO 4.18 l/min LVOT CI
[2022-03-30 03:51] LABS: Creatinine Urine 285.4 mg/dL
[2022-03-30 03:53] LABS: Sodium Urine Random 22 meq/L
[2022-03-30 03:55] LABS: Total Protein Urine Random < 5 mg/dL; Ur Ttl Prot Creatinine Ratio 0.02 mg/mg (0-0.20)
[2022-03-30 05:30] LABS: Eosinophil Urine None Seen % (None Seen)
[2022-03-30 06:34] LABS: Albumin Level 3.2 g/dL (3.5-5.1); Anion Gap 7 mmol/L (8-16); Blood Urea Nitrogen 93 mg/dL (7-17); Calcium 7.5 mg/dL (8.4-10.2); Carbon Dioxide 25 mmol/L (22-30); Chloride 99 mmol/L (98-107); Creatine Kinase 225 U/L (30-135); Estimated CRCL calculation 19 ml/min; Estimated Glomerular Filt Rate 13; Glucose 159 mg/dL (65-110); Magnesium 2.1 mg/dL (1.6-2.3); Phosphorus 4.8 mg/dL (2.5-4.5); Potassium 4.3 mmol/L (3.4-5.0); Sodium 131 mmol/L (137-145)
--- NOTE | 2022-03-30 07:49 | PM.IMPN ---
Progress Note: A&P Assessment and Plan (1) Acute respiratory failure with hypoxia: Code(s): J96.01 - Acute respiratory failure with hypoxia Status: Acute Assessment and Plan: The patient has acute hypoxic respiratory failure due to COPD exacerbation caused by influenza a infection. Patient was initially started on renally dosed Tamiflu, p.o. prednisone and scheduled nebulizer treatments. spO2 93% on 2L NC. Patient is not on oxygen at home. Wean as tolerated. Prednisone discontinued due to risk of worsening flu symptoms. Completed 5 days Tamiflu on 03/28 On home O2 level. Increased wheezing and rales- resume scheduled nebs. (2) Influenza A: Code(s): J10.1 - Influenza due to other identified influenza virus with other respiratory manifestations Status: Resolved Assessment and Plan: Treated with Tamiflu x5 days, renally dosed as above. (3) COPD with acute exacerbation: Code(s): J44.1 - Chronic obstructive pulmonary disease with (acute) exacerbation Status: Chronic Assessment and Plan: COPD exacerbation secondary to flu A suspected Continue scheduled Nebulizer treatments Prednisone stopped due to concern for secondary bacterial pneumonia with influenza. Consider resuming if wheezing persists. Wean oxygen to maintain O2 saturation above 90. Repeat chest x-ray with pulmonary congestion. No s/s pneumonia (4) Candidiasis: Code(s): B37.9 - Candidiasis, unspecified Status: Acute Assessment and Plan: Patient came into the hospital with yeast infection in her right groin extending onto the right hip. Skin was malodorous. Patient has pain associated with the rash Continue Nystatin powder BID x 14 days (5) Acute kidney injury superimposed on chronic kidney disease: Code(s): N17.9 - Acute kidney failure, unspecified; N18.9 - Chronic kidney disease, unspecified Status: Acute Assessment and Plan: Patient has acute kidney injury superimposed on chronic kidney disease stage 3. This is likely due to volume depletion however given the patient's report of sensation of incomplete bladder emptying in the past will check bladder scan to rule out possible component of obstructive uropathy. Hold Lasix for now as BP is soft and ?dehydration. Hold nephrotoxic agents. 03/29/22 BUN 86, creatinine 3.1, GFR 15 and slightly increased. Trial gentle hydration. Add daily weights. I/O cumulative 5970 mL intake/1150 mL output/ +5 urinary voids in the past 24 hours Nephrology consulted and appreciate recommendations. 03/30 BUN/serum creatinine increasing. Urine output reduced. FENa 0.2% suggesting pre-renal JESSICA, however, patient had worsening respiratory status after initiating IV fluids yesterday and fluids were stopped. Will trial gentle NS@60 mL/hour. Monitor urine output. She may be progressing to dialysis. Plan of care discussed with Nephrology, who is in agreement with plan of care. (6) DANNI (obstructive sleep apnea): Code(s): G47.33 - Obstructive sleep apnea (adult) (pediatric) Status: Chronic Assessment and Plan: Patient has obstructive sleep apnea as and is requesting CPAP/BiPAP. Auto titrating CPAP/BiPAP has been ordered. (7) Type 2 diabetes mellitus with hyperglycemia, with long-term current use of insulin: Code(s): E11.65 - Type 2 diabetes mellitus with hyperglycemia; Z79.4 - [facility] (current) use of insulin Status: Chronic Assessment and Plan: Type 2 diabetes mellitus with hyperglycemia. Patient is on p.o. steroids I anticipate some increased hyperglycemia. Patient on Lantus 25 units Glucose improved. On aspart 4 units with meals plus high dose sliding scale insulin. Accu-Cheks a.c. HS and hypoglycemia protocol. (8) Depression: Code(s): F32.A - Depression, unspecified Status: Acute Assessment and Plan: Continue antidepressants. Mood appears worsened since patient heard she will be
[2022-03-30] MEDS: carvediloL 12.5 MG TABLET PO (09:07)
[2022-03-30] MEDS: guaiFENesin 12 HR 600 MG TABCR PO ×2 (09:07→21:00)
[2022-03-30] MEDS: FUROSEMIDE 40 MG TABLET PO (09:07)
[2022-03-30] MEDS: ENOXAPARIN 30 MG/0.3 ML SYRINGE SUB-Q (09:07)
[2022-03-30] MEDS: DULoxetine HCL 60 MG CAPSULE.DR PO (09:07)
[2022-03-30] MEDS: clonazePAM (*CRX) 0.5 MG TABLET 1 MG PO ×2 (09:07→16:27)
[2022-03-30] MEDS: SIMVASTATIN 20 MG TABLET 40 MG PO (09:07)
[2022-03-30] MEDS: hydrOXYzine HCL 10 MG TABLET PO (09:07)
[2022-03-30] MEDS: TOLNAFTATE 1% POWDER 45 GM BTL 1 APPLIC TOPICAL ×2 (09:08→21:00)
[2022-03-30 09:14] LABS: Glucose Point of Care 174 mg/dl (65-105)
[2022-03-30] MEDS: ALBUTEROL SULFATE NEB 2.5 MG/3 ML INH 5 MG INHALATION (09:21)
[2022-03-30] MEDS: IPRATROPIUM BR 0.02% INH SOLN 0.5 MG/2.5 ML VIAL INHALATION ×3 (09:21→19:27)
[2022-03-30] MEDS: UMECLIDINIUM/VILANTEROL 62.5-25 MCG ELLIPTA 1 PUFF INHALATION (09:21)
[2022-03-30] MEDS: INSULIN ASPART (*BKC) 100 UNITS/ML SUB-Q ×4 (09:53→18:01)
[2022-03-30 12:26] LABS: Glucose Point of Care 218 mg/dl (65-105)
--- NOTE | 2022-03-30 13:24 | P.PNNP_ITS ---
Progress Note: A&P Assessment and Plan (1) JESSICA (acute kidney injury): Code(s): N17.9 - Acute kidney failure, unspecified Status: Acute Assessment and Plan: * creatinine up to 3.0mg/dl on admission * given her history of fluctuating kidney function -- is this really acute or possibly progression of her known CKD??? * deteriorated more in the last 24 hours * evaluation to date: * urine electrolytes prerenal * urine eosinophils negative * CPK elevated but nit high enough to impact renal function * renal ultrasound pending * hold UNA-I and diuretics for now * IVFs as tolerated by respiratory status * follow trend of repeat labs and UOP (2) Chronic kidney disease, stage IV (severe): Code(s): N18.4 - Chronic kidney disease, stage 4 (severe) Status: Chronic Assessment and Plan: * renal function/creatinine seems to have fluctuated to extremes in the last few years * seems to run ~ 1.7 - 2.4mg/dl in the last year * presumably due to DM, HTN, CHF, DANNI, vascular disease, and age (3) Acute respiratory failure with hypoxia: Code(s): J96.01 - Acute respiratory failure with hypoxia Status: Acute Assessment and Plan: * suspected COPD exacerbation triggered by #4 * continue supplemental oxygen, nebulizer treatments, and steroids * wean oxygen as tolerated (4) Influenza A: Code(s): J10.1 - Influenza due to other identified influenza virus with other respiratory manifestations Status: Acute Assessment and Plan: * completed course of Tamiflu * continue supportive therapy (5) Type 2 diabetes mellitus with hyperglycemia, with long-term current use of insulin: Code(s): E11.65 - Type 2 diabetes mellitus with hyperglycemia; Z79.4 - termite inspector (current) use of insulin Status: Chronic Assessment and Plan: * follow accuchecks * glycemic control Will continue to follow. Subjective Date/time seen: 03/30/22 13:24 Unable to see patient yesterday (out of room for test??); renal function a bit worse today compared to previous testing; restarted on trial of gentle IVFs although recent CXR findings noted; no apparent distress voiced. Exam Narrative: General: elderly female in NAD Heart: normal S1 and S2; no rub Lungs: scattered honchi and a few wheezes Abdomen: soft, nontender, nondistended, positive bowel sounds Extremities: no cyanosis or clubbing; no edema Skin: warm and dry Objective Data Vital Signs Vital Signs: Vital Signs Temp Pulse Resp BP Pulse Ox O2 Del Method O2 Flow Rate 03/30/22 09:38 77 22 H 03/30/22 09:20 77 22 H 03/30/22 09:07 79 03/30/22 06:00 97.8 F 68 20 100/54 L 92 03/29/22 21:09 93 Nasal Cannula 2 03/29/22 21:52 97.4 F L 71 20 98/50 L 92 03/29/22 20:00 92 Nasal Cannula 1 03/29/22 20:24 66 03/29/22 14:26 98.1 F 66 20 94/58 L 92 Intake/Output Intake/Output: Intake & Output 03/27/22 03/28/22 03/29/22 03/30/22 23:59 23:59 23:59 23:59 Intake Total 9800 928 1908 150 Output Total 650 100 150 Balance 606 812 4097 0 Meds/Results Medications: Active Medications Generic Name Dose Ro
--- NOTE | 2022-03-30 13:24 | PM.PNNEP ---
Progress Note: A&P Assessment and Plan (1) JESSICA (acute kidney injury): Code(s): N17.9 - Acute kidney failure, unspecified Status: Acute Assessment and Plan: creatinine up to 3.0mg/dl on admission given her history of fluctuating kidney function -- is this really acute or possibly progression of her known CKD??? deteriorated more in the last 24 hours evaluation to date: urine electrolytes prerenal urine eosinophils negative CPK elevated but nit high enough to impact renal function renal ultrasound pending hold UNA-I and diuretics for now IVFs as tolerated by respiratory status follow trend of repeat labs and UOP (2) Chronic kidney disease, stage IV (severe): Code(s): N18.4 - Chronic kidney disease, stage 4 (severe) Status: Chronic Assessment and Plan: renal function/creatinine seems to have fluctuated to extremes in the last few years seems to run ~ 1.7 - 2.4mg/dl in the last year presumably due to DM, HTN, CHF, DANNI, vascular disease, and age (3) Acute respiratory failure with hypoxia: Code(s): J96.01 - Acute respiratory failure with hypoxia Status: Acute Assessment and Plan: suspected COPD exacerbation triggered by #4 continue supplemental oxygen, nebulizer treatments, and steroids wean oxygen as tolerated (4) Influenza A: Code(s): J10.1 - Influenza due to other identified influenza virus with other respiratory manifestations Status: Acute Assessment and Plan: completed course of Tamiflu continue supportive therapy (5) Type 2 diabetes mellitus with hyperglycemia, with long-term current use of insulin: Code(s): E11.65 - Type 2 diabetes mellitus with hyperglycemia; Z79.4 - oil heaterman (current) use of insulin Status: Chronic Assessment and Plan: follow accuchecks glycemic control Will continue to follow. Subjective Date/time seen: 03/30/22 13:24 Unable to see patient yesterday (out of room for test??); renal function a bit worse today compared to previous testing; restarted on trial of gentle IVFs although recent CXR findings noted; no apparent distress voiced. Exam Narrative: General: elderly female in NAD Heart: normal S1 and S2; no rub Lungs: scattered honchi and a few wheezes Abdomen: soft, nontender, nondistended, positive bowel sounds Extremities: no cyanosis or clubbing; no edema Skin: warm and dry Objective Data Vital Signs Vital Signs: Vital Signs Temp Pulse Resp BP Pulse Ox O2 Del Method O2 Flow Rate 03/30/22 09:38 77 22 H 03/30/22 09:20 77 22 H 03/30/22 09:07 79 03/30/22 06:00 97.8 F 68 20 100/54 L 92 03/29/22 21:09 93 Nasal Cannula 2 03/29/22 21:52 97.4 F L 71 20 98/50 L 92 03/29/22 20:00 92 Nasal Cannula 1 03/29/22 20:24 66 03/29/22 14:26 98.1 F 66 20 94/58 L 92 Intake/Output Intake/Output: Intake & Output 03/27/22 03/28/22 03/29/22 03/30/22 23:59 23:59 23:59 23:59 Intake Total 6949 678 7527 150 Output Total 650 100 150 Balance 877 025 4915 0 Meds/Results Medications: Active Medications Generic Name Dose Route Start Last Admin Trade Name Freq PRN Reason Stop Dose Admin Hydrocodone Bitart/Acetaminophen 1 tab 03/25/22 05:49 03/28/22 20:11 Hydrocodone/Acetaminophen (*Crx) 5-325 Mg Tablet PO 1 tab QID PRN Administration Pain 7-10 Albuterol 2.5 mg 03/30/22 14:00 Albuterol Sulfate Neb 2.5 Mg/3 Ml Inh INHALATION Q6HRT CAROL Carvedilol 3.125 mg 03/30/22 21:00 Carvedilol 3.125 Mg Tablet PO Q12HR CAROL Clonazepam 1 mg 03/25/22 09:00 03/30/22 09:07 Clonazepam (*Crx) 0.5 Mg Tablet PO 1 mg BID CAROL Administration Dextrose 12.5 gm 03/25/22 05:51 Dextrose 50% 25 Gm/50 Ml Syringe IV PUSH PRN PRN Hypoglycemia Protocol Duloxetine HCl 60 mg 03/25/22 09:00 03/30/22 09:07 Duloxetine Hcl 60 Mg Capsule
[2022-03-30] MEDS: SODIUM CHLORIDE 0.9% IV 1,000 ML 60 ML IV CONT (13:59)
[2022-03-30] MEDS: PERFLUTREN LIPID MICROSPHERES 1.5 ML VIAL DILUTED TO 10 ML TOTAL VOLUME IV PUSH (14:36)
--- NOTE | 2022-03-30 14:37 | IVDEFINITY ---
Prior to administration of IV Definity the patient was educated on the risks and benefits of the imaging enhancing agent including potential adverse side effects. The patient verbalized understanding. Allergies were verified. No exclusion criteria were identified and at least one of the following inclusion criteria were met: 1) physician request, 2) patient technically difficult to image (per the [place] [employer] guidelines of two or more segments not discernable within the apical view), or 3) questionable left ventricular function. ?
[2022-03-30] MEDS: ALBUTEROL SULFATE NEB 2.5 MG/3 ML INH INHALATION ×2 (14:54→19:27)
[2022-03-30 15:37] LABS: Glucose Point of Care 176 mg/dl (65-105)
[2022-03-30 18:20] LABS: Glucose Point of Care 168 mg/dl (65-105)
[2022-03-30 20:41] LABS: Glucose Point of Care 168 mg/dl (65-105)
[2022-03-30] MEDS: INSULIN GLARGINE (*BKC) 100 UNITS/ML 25 UNITS SUB-Q (20:58)
[2022-03-30] MEDS: carvediloL 3.125 MG TABLET PO (21:00)
[2022-03-31] VITALS (15 sets, daily range): BP systolic 100–101; BP diastolic 68–75; PULSE 68–88; RESP 14–20; TEMP 35.6–36.6; O2SAT 77–97; BMI 11.0
[2022-03-31] MEDS: IPRATROPIUM BR 0.02% INH SOLN 0.5 MG/2.5 ML VIAL INHALATION ×4 (01:22→20:13)
[2022-03-31] MEDS: ALBUTEROL SULFATE NEB 2.5 MG/3 ML INH INHALATION ×4 (01:22→20:13)
[2022-03-31 05:51] LABS: Albumin Level 3.2 g/dL (3.5-5.1); Anion Gap 9 mmol/L (8-16); Blood Urea Nitrogen 100 mg/dL (7-17); Calcium 7.8 mg/dL (8.4-10.2); Carbon Dioxide 25 mmol/L (22-30); Chloride 103 mmol/L (98-107); Estimated CRCL calculation 21 ml/min; Estimated Glomerular Filt Rate 14; Glucose 150 mg/dL (65-110); Magnesium 2.2 mg/dL (1.6-2.3); Phosphorus 4.4 mg/dL (2.5-4.5); Potassium 4.2 mmol/L (3.4-5.0); Sodium 137 mmol/L (137-145)
--- NOTE | 2022-03-31 07:34 | PM.IMPN ---
Progress Note: A&P Assessment and Plan (1) Acute respiratory failure with hypoxia: Code(s): J96.01 - Acute respiratory failure with hypoxia Status: Acute Assessment and Plan: The patient has acute hypoxic respiratory failure due to COPD exacerbation caused by influenza a infection. Patient was initially started on renally dosed Tamiflu, p.o. prednisone and scheduled nebulizer treatments. spO2 93% on 2L NC. Patient is not on oxygen at home. Wean as tolerated. Prednisone discontinued due to risk of worsening flu symptoms. Completed 5 days Tamiflu on 03/28 On home O2 level. Continue pulmonary toilet (2) Influenza A: Code(s): J10.1 - Influenza due to other identified influenza virus with other respiratory manifestations Status: Resolved Assessment and Plan: Treated with Tamiflu x5 days, renally dosed as above. (3) COPD with acute exacerbation: Code(s): J44.1 - Chronic obstructive pulmonary disease with (acute) exacerbation Status: Chronic Assessment and Plan: COPD exacerbation secondary to flu A suspected Continue scheduled Nebulizer treatments Prednisone stopped due to concern for secondary bacterial pneumonia with influenza. Consider resuming if wheezing persists. Wean oxygen to maintain O2 saturation above 90. Repeat chest x-ray with pulmonary congestion 03/29. No s/s pneumonia (4) Candidiasis: Code(s): B37.9 - Candidiasis, unspecified Status: Acute Assessment and Plan: Patient came into the hospital with yeast infection in her right groin extending onto the right hip. Skin was malodorous. Patient has pain associated with the rash Continue Nystatin powder BID x 14 days Improving. (5) Acute kidney injury superimposed on chronic kidney disease: Code(s): N17.9 - Acute kidney failure, unspecified; N18.9 - Chronic kidney disease, unspecified Status: Acute Assessment and Plan: Patient has acute kidney injury superimposed on chronic kidney disease stage 3. This is likely due to volume depletion however given the patient's report of sensation of incomplete bladder emptying Hold nephrotoxic agents. 03/29/22 BUN 86, creatinine 3.1, GFR 15 and slightly increased. Trial gentle hydration. daily weights. Monitor I/O. Continue external mckeon catheter for I/O monitor. Nephrology consulted and appreciate recommendations. 03/30 BUN/serum creatinine increasing. Urine output reduced. FENa 0.2% suggesting pre-renal JESSICA, however, patient had worsening respiratory status after initiating IV fluids yesterday and fluids were stopped. Will trial gentle NS@60 mL/hour. Monitor urine output. She may be progressing to dialysis. Plan of care discussed with Nephrology, who is in agreement with plan of care. 03/31 Increased BUN, improved creatinine. Respiratory status does not appear worsened today. Continue gentle IV hydration. Repeat renal function panel in am. (6) DANNI (obstructive sleep apnea): Code(s): G47.33 - Obstructive sleep apnea (adult) (pediatric) Status: Chronic Assessment and Plan: Patient has obstructive sleep apnea as and is requesting CPAP/BiPAP. Auto titrating CPAP/BiPAP has been ordered. (7) Type 2 diabetes mellitus with hyperglycemia, with long-term current use of insulin: Code(s): E11.65 - Type 2 diabetes mellitus with hyperglycemia; Z79.4 - terminal gauger (current) use of insulin Status: Chronic Assessment and Plan: Type 2 diabetes mellitus with hyperglycemia. Patient is on p.o. steroids I anticipate some increased hyperglycemia. Patient on Lantus 25 units Glucose <200 mg/dL in the past 24 hours. Fasting glucose 150 today 03/31 Increase aspart 6 units with meals plus high dose sliding scale insulin. Accu-Cheks a.c. HS and hypoglycemia protocol. (8) Depression: Code(s): F32.A - Depression, unspecified Status: Acute Assessment and Plan: Continue antidepressants. Mood a
[2022-03-31 09:26] LABS: Glucose Point of Care 164 mg/dl (65-105)
[2022-03-31] MEDS: UMECLIDINIUM/VILANTEROL 62.5-25 MCG ELLIPTA 1 PUFF INHALATION (09:43)
[2022-03-31] MEDS: clonazePAM (*CRX) 0.5 MG TABLET 1 MG PO ×2 (09:44→18:25)
[2022-03-31] MEDS: carvediloL 3.125 MG TABLET PO ×2 (09:45→21:59)
[2022-03-31] MEDS: guaiFENesin 12 HR 600 MG TABCR PO ×2 (09:45→21:59)
[2022-03-31] MEDS: SIMVASTATIN 20 MG TABLET 40 MG PO (09:45)
[2022-03-31] MEDS: DULoxetine HCL 60 MG CAPSULE.DR PO (09:45)
[2022-03-31] MEDS: TOLNAFTATE 1% POWDER 45 GM BTL 1 APPLIC TOPICAL (09:46)
[2022-03-31] MEDS: ENOXAPARIN 30 MG/0.3 ML SYRINGE SUB-Q (09:46)
[2022-03-31] MEDS: INSULIN ASPART (*BKC) 100 UNITS/ML SUB-Q ×2 (09:52→13:17)
--- NOTE | 2022-03-31 10:34 | P.PNNP_ITS ---
Progress Note: A&P Assessment and Plan (1) JESSICA (acute kidney injury): Code(s): N17.9 - Acute kidney failure, unspecified Status: Acute Assessment and Plan: * creatinine up to 3.0mg/dl on admission * given her history of fluctuating kidney function -- is this really acute or possibly progression of her known CKD??? * creatinine was 1.7 in August 2021 * evaluation to date: * urine electrolytes prerenal * urine eosinophils negative * CPK elevated but nit high enough to impact renal function * renal ultrasound not done -- will reorder * hold UNA-I and diuretics for now * IVFs as tolerated by respiratory status * follow trend of repeat labs and UOP (2) Chronic kidney disease, stage IV (severe): Code(s): N18.4 - Chronic kidney disease, stage 4 (severe) Status: Chronic Assessment and Plan: * renal function/creatinine seems to have fluctuated to extremes in the last few years * seems to run ~ 1.7 - 2.4mg/dl in the last year * presumably due to DM, HTN, CHF, DANNI, vascular disease, and age (3) Acute respiratory failure with hypoxia: Code(s): J96.01 - Acute respiratory failure with hypoxia Status: Acute Assessment and Plan: * suspected COPD exacerbation triggered by #4 * continue supplemental oxygen, nebulizer treatments, and steroids * wean oxygen as tolerated (4) Influenza A: Code(s): J10.1 - Influenza due to other identified influenza virus with other respiratory manifestations Status: Acute Assessment and Plan: * completed course of Tamiflu * continue supportive therapy (5) Type 2 diabetes mellitus with hyperglycemia, with long-term current use of insulin: Code(s): E11.65 - Type 2 diabetes mellitus with hyperglycemia; Z79.4 - truck terminal manager (current) use of insulin Status: Chronic Assessment and Plan: * follow accuchecks * glycemic control Will continue to follow. Subjective Date/time seen: 03/31/22 10:34 BUN elevated but creatinine a bit better -- unclear if urine output is worse or improving due to urinary incontinence; seems to be tolerating low dose/gentle IVFs at this time; respiratory status seems relatively stable. Exam Narrative: General: elderly female in NAD Heart: normal S1 and S2; no rub Lungs: wheezing noted along with fine crackles at bases Abdomen: soft, nontender, nondistended, positive bowel sounds Extremities: no cyanosis or clubbing; no edema Skin: warm and intact Objective Data Vital Signs Vital Signs: Vital Signs Temp Pulse Resp BP Pulse Ox O2 Del Method O2 Flow Rate 03/31/22 10:07 84 18 03/31/22 09:49 90 Nasal Cannula 4 03/31/22 09:45 77 L Nasal Cannula 1 03/31/22 09:50 81 18 03/31/22 09:45 69 03/31/22 06:00 96.1 F L 88 20 95 03/31/22 01:38 84 18 03/31/22 01:25 97 Autopap 03/31/22 01:22 86 18 03/30/22 20:00 90 Nasal Cannula 2 03/30/22 22:00 96.2 F L 78 20 115/45 L 90 03/30/22 21:00 72 03/30/22 19:47 81 20 03/30/22 19:44 78 90 Autopap 03/30/22 19:27 78 20 03/30/22 19:27 74 20 90 Nasal Cannula 1 03/30/22 17:00 92 Nasal Cannula 1 03/30/22 15:07 72 22 H 03/30/22 15:01 70 22 H 83 L Truong
--- NOTE | 2022-03-31 10:34 | PM.PNNEP ---
Progress Note: A&P Assessment and Plan (1) JESSICA (acute kidney injury): Code(s): N17.9 - Acute kidney failure, unspecified Status: Acute Assessment and Plan: creatinine up to 3.0mg/dl on admission given her history of fluctuating kidney function -- is this really acute or possibly progression of her known CKD??? creatinine was 1.7 in August 2021 evaluation to date: urine electrolytes prerenal urine eosinophils negative CPK elevated but nit high enough to impact renal function renal ultrasound not done -- will reorder hold UNA-I and diuretics for now IVFs as tolerated by respiratory status follow trend of repeat labs and UOP (2) Chronic kidney disease, stage IV (severe): Code(s): N18.4 - Chronic kidney disease, stage 4 (severe) Status: Chronic Assessment and Plan: renal function/creatinine seems to have fluctuated to extremes in the last few years seems to run ~ 1.7 - 2.4mg/dl in the last year presumably due to DM, HTN, CHF, DANNI, vascular disease, and age (3) Acute respiratory failure with hypoxia: Code(s): J96.01 - Acute respiratory failure with hypoxia Status: Acute Assessment and Plan: suspected COPD exacerbation triggered by #4 continue supplemental oxygen, nebulizer treatments, and steroids wean oxygen as tolerated (4) Influenza A: Code(s): J10.1 - Influenza due to other identified influenza virus with other respiratory manifestations Status: Acute Assessment and Plan: completed course of Tamiflu continue supportive therapy (5) Type 2 diabetes mellitus with hyperglycemia, with long-term current use of insulin: Code(s): E11.65 - Type 2 diabetes mellitus with hyperglycemia; Z79.4 - rat exterminator (current) use of insulin Status: Chronic Assessment and Plan: follow accuchecks glycemic control Will continue to follow. Subjective Date/time seen: 03/31/22 10:34 BUN elevated but creatinine a bit better -- unclear if urine output is worse or improving due to urinary incontinence; seems to be tolerating low dose/gentle IVFs at this time; respiratory status seems relatively stable. Exam Narrative: General: elderly female in NAD Heart: normal S1 and S2; no rub Lungs: wheezing noted along with fine crackles at bases Abdomen: soft, nontender, nondistended, positive bowel sounds Extremities: no cyanosis or clubbing; no edema Skin: warm and intact Objective Data Vital Signs Vital Signs: Vital Signs Temp Pulse Resp BP Pulse Ox O2 Del Method O2 Flow Rate 03/31/22 10:07 84 18 03/31/22 09:49 90 Nasal Cannula 4 03/31/22 09:45 77 L Nasal Cannula 1 03/31/22 09:50 81 18 03/31/22 09:45 69 03/31/22 06:00 96.1 F L 88 20 95 03/31/22 01:38 84 18 03/31/22 01:25 97 Autopap 03/31/22 01:22 86 18 03/30/22 20:00 90 Nasal Cannula 2 03/30/22 22:00 96.2 F L 78 20 115/45 L 90 03/30/22 21:00 72 03/30/22 19:47 81 20 03/30/22 19:44 78 90 Autopap 03/30/22 19:27 78 20 03/30/22 19:27 74 20 90 Nasal Cannula 1 03/30/22 17:00 92 Nasal Cannula 1 03/30/22 15:07 72 22 H 03/30/22 15:01 70 22 H 83 L Nasal Cannula 1 03/30/22 14:57 70 22 H Intake/Output Intake/Output: Intake & Output 03/28/22 03/29/22 03/30/22 03/31/22 23:59 23:59 23:59 23:59 Intake Total 986 1210 390 240 Output Total 100 250 150 Balance 886 1210 140 90 Meds/Results Medications: Active Medications Generic Name Dose Route Start Last Admin Trade Name Freq PRN Reason Stop Dose Admin Hydrocodone Bitart/Acetaminophen 1 tab 03/25/22 05:49 03/28/22 20:11 Hydrocodone/Acetaminophen (*Crx) 5-325 Mg Tablet PO 1 tab QID PRN Administration Pain 7-10 Albuterol 2.5 mg 03/30/22 14:00 03/31/22 09:42 Albuterol Sulfate Neb 2.5 Mg/3 Ml Inh INHALATION 2.5 mg Q6HRT
[2022-03-31 13:05] LABS: Glucose Point of Care 183 mg/dl (65-105)
[2022-03-31 17:59] LABS: Glucose Point of Care 180 mg/dl (65-105)
[2022-03-31] MEDS: SODIUM CHLORIDE 0.9% IV 1,000 ML 60 ML IV CONT (18:25)
[2022-03-31] MEDS: INSULIN ASPART (*BKC) 100 UNITS/ML 6 UNITS SUB-Q (18:26)
[2022-03-31] MEDS: INSULIN GLARGINE (*BKC) 100 UNITS/ML 25 UNITS SUB-Q (21:54)
[2022-04-01] VITALS (20 sets, daily range): BP systolic 85–116; BP diastolic 38–62; PULSE 60–77; RESP 14–41; TEMP 36.1–36.8; O2SAT 86–100
[2022-04-01] MEDS: IPRATROPIUM BR 0.02% INH SOLN 0.5 MG/2.5 ML VIAL INHALATION ×4 (02:05→20:16)
[2022-04-01] MEDS: ALBUTEROL SULFATE NEB 2.5 MG/3 ML INH INHALATION ×4 (02:05→20:16)
[2022-04-01 03:30] LABS: Glucose Point of Care 156 mg/dl (65-105)
[2022-04-01 05:32] LABS: Albumin Level 3.2 g/dL (3.5-5.1); Anion Gap 7 mmol/L (8-16); Blood Urea Nitrogen 102 mg/dL (7-17); Calcium 7.8 mg/dL (8.4-10.2); Carbon Dioxide 26 mmol/L (22-30); Chloride 102 mmol/L (98-107); Estimated CRCL calculation 23 ml/min; Estimated Glomerular Filt Rate 15; Glucose 133 mg/dL (65-110); Magnesium 2.2 mg/dL (1.6-2.3); Phosphorus 5.1 mg/dL (2.5-4.5); Potassium 4.4 mmol/L (3.4-5.0); Sodium 135 mmol/L (137-145)
[2022-04-01 09:19] LABS: Glucose Point of Care 138 mg/dl (65-105)
--- NOTE | 2022-04-01 09:26 | PCOTNOTE ---
Attempted to see pt for occupational therapy tx this A.M. Pt presented when therapist entered room with very crackling breathing, very lethargic, and drooping in Left eyelid. Pt was able to bring washcloth up to her face with LUE following max cueing for sequencing and required hand over hand assist to complete face washing. Following this, pt was able to open her left eye more but was still slightly droopy. RN was already aware of this and was speaking to the doctor when therapist brought up pt's concerns. Due to decreased alertness and pt requiring stat testing/imaging, therapy session ended early. Will continue per poc duration/frequency tomorrow.
[2022-04-01] MEDS: FUROSEMIDE INJ 40 MG/4 ML VIAL IV PUSH (09:44)
[2022-04-01] MEDS: clonazePAM (*CRX) 0.5 MG TABLET 1 MG PO (09:47)
[2022-04-01] MEDS: carvediloL 3.125 MG TABLET PO (09:47)
[2022-04-01] MEDS: DULoxetine HCL 60 MG CAPSULE.DR PO (09:47)
--- NOTE | 2022-04-01 09:47 | PM.IMPN ---
Progress Note: A&P Assessment and Plan (1) Acute on chronic respiratory failure with hypoxia and hypercapnia: Code(s): J96.21 - Acute and chronic respiratory failure with hypoxia; J96.22 - Acute and chronic respiratory failure with hypercapnia Status: Acute Assessment and Plan: Patient presented to the hospital with acute hypoxic respiratory failure due to COPD exacerbation caused by influenza a infection. She was treated with 5 days renally dosed Tamiflu completed 03/28, p.o. prednisone and scheduled nebulizer treatments for COPD. Prednisone was discontinued due to risk of worsening flu symptoms. 04/01 Patient with worsening respiratory status and lethargy. ABG pH 7.39, PaCO2 57, PaO2 70.8, bicarb 23 on 5L NC- acute respiratory acidosis. Patient refused cpap overnight per notes. Transferred to IMU. Bipap 14/8/75%, tidal volume 459. Repeat ABG @1300 with pH 7.27, PaCO2 51, PaO2 145, bicarb 23, marginal improvement in pH & PaCO2. Significant improvement in PaO2. Patient had had bipap taken off for speech evaluation during this time. Will repeat ABG in am. Acute worsening presumed secondary to aspiration pneumonia. Continue antibiotics. Lasix 40 mg IVP x1 given for possible pulmonary congestion and respiratory distress this am. (2) Pneumonia: Qualifiers: Pneumonia type: aspiration pneumonia Aspiration pneumonia type: due to regurgitated food Laterality: unspecified laterality Lung location: unspecified part of lung Qualified Code(s): J69.0 - Pneumonitis due to inhalation of food and vomit Code(s): J18.9 - Pneumonia, unspecified organism Status: Acute Assessment and Plan: WBC 15.8 with bandemia. change in respiratory and neuro status on exam. Lactic acid within normal limits. procalcitonin 0.6 elevated CRP 32.7 elevated. CXR with improved pulmonary edema, however early aspiration pneumonia is not always apparent on radiographs. Start IV vancomycin with pharmacy to treat, Cefepime IV renally dosed for pseudomonas coverage and metronidazole 500 mg IV Q8 hours for anaerobic coverage. MRSA nasal swab pending. Trend CBC, monitor vitals Supportive care as above for respiratory status - continue bipap overnight, oral and NT suction as needed. Pulmonary toilet when able to follow commands. Keep NPO for now until mentation improved and patient can undergo swallow evaluation by speech. (3) COPD with acute exacerbation: Code(s): J44.1 - Chronic obstructive pulmonary disease with (acute) exacerbation Status: Chronic Assessment and Plan: COPD exacerbation secondary to flu A suspected upon admission. Now thought to have aspiration pneumonia. Continue scheduled Nebulizer treatments Q4 hours Prednisone stopped due to concern for secondary bacterial pneumonia with influenza. Consider resuming if wheezing persists. Wean oxygen to maintain O2 saturation above 90. Repeat chest x-ray with pulmonary congestion 03/29. 04/01 chest x-ray with improved pulmonary congestion. (4) Influenza A: Code(s): J10.1 - Influenza due to other identified influenza virus with other respiratory manifestations Status: Resolved Assessment and Plan: Treated with Tamiflu x5 days, renally dosed as above. (5) Candidiasis: Code(s): B37.9 - Candidiasis, unspecified Status: Acute Assessment and Plan: Patient came into the hospital with yeast infection in her right groin extending onto the right hip. Skin was malodorous. Patient has pain associated with the rash Continue Nystatin powder BID x 14 days Start interdry to abdominal folds for moisture wicking (6) Acute kidney injury superimposed on chronic kidney disease: Code(s): N17.9 - Acute kidney failure, unspecified; N18.9 - Chronic kidney disease, unspecified Status: Acute Assessment and Plan: Patient has acute kidney injury superimposed on chronic kidney disease stage 3. This is likely due t
[2022-04-01] MEDS: ENOXAPARIN 30 MG/0.3 ML SYRINGE SUB-Q (09:48)
[2022-04-01 10:04] LABS: Basophils Absolute Auto 0.1 K/mm3 (0.0-0.1); Basophils Percent Auto 0.6 % (0.2-1.2); Eosinophils Percent Auto 0.1 % (0-4.4); Hematocrit 33.5 % (37.0-47.0); Immature Granulocyte Absolute 0.16 K/mm3 (0.00-0.031); Lymphocytes Absolute Auto 0.69 K/mm3 (0.9-3.2); Lymphocytes Percent Auto 4.4 % (18.3-44.2); Mean Corpuscular HGB Conc 29.9 g/dl (32-36); Mean Corpuscular Hemoglobin 31.4 pg (26-34); Mean Corpuscular Volume 105.3 fl (80-100); Mean Platelet Volume 10.7 fl (7.4-10.4); Monocytes Percent Auto 12.5 % (2.6-8.5); Neutrophils Absolute Auto 12.9 K/mm3 (1.3-6.7); Neutrophils Percent Auto 81.4 % (45.5-73.1); Nucleated Red Blood Cells Perc 0.1 % (0.0-0.2); Platelet Count Result 200 k/mm3 (150-375); Red Blood Count 3.18 M/mm3 (4.2-5.4); Red Cell Distribution Width 14.9 % (11.5-14.5); White Blood Count 15.8 K/mm3 (4.5-10.0)
[2022-04-01 10:12] LABS: Alveolar/Arterial O2 Gradient 119.8 mmHg; Base Excess ABG -4.1 mEq/l (+/-2.0); Carboxyhemoglobin 0.1 % THb (0-2.0); Fractional Inspired Oxygen 36 %; HCO3 ABG 23.8 mEq/l (22.0-26.0); Methemoglobin ABG 0.3 %THb (0-1.5); Oxyhemoglobin 92.7 % THb (90.0-100.0); PO2 ABG 70.8 mmHg (80.0-100.0); PO2 FiO2 Ratio Arterial Blood 1.97 %; Reduced Hemoglobin 6.9 %THb (0-5.0); Total Hemoglobin 11.5 g/dL (12.0-18.0)
[2022-04-01 10:13] LABS: Device NASAL CANNULA; Modified Allen's Test Pass; Site Drawn RIGHT RADIAL; pH ABG 7.239 (7.350-7.450)
[2022-04-01 10:14] LABS: Lactic Acid Reflex 0.9 mmol/L (0.7-2.0)
[2022-04-01 10:28] LABS: Platelet Estimate Adequate (Adequate); Schistocytes None Seen (NORMAL)
[2022-04-01 10:29] LABS: Hypochromasia 1+ (NORMAL); Poikilocytosis 1+ (NORMAL)
[2022-04-01 10:55] LABS: CRP 32.7 mg/dL (<1.0)
[2022-04-01 11:12] LABS: NT Pro B Type Natriuretic Pept 2350 pg/mL (5-100)
[2022-04-01 11:14] LABS: Procalcitonin 0.6 ng/mL
--- NOTE | 2022-04-01 11:47 | PCSTNOTE ---
Attempted bedside swallowing evaluation. Patient is on bipap. Patient unable to stay awake for evaluation. Discussed with nurse and doctor. Will try again tomorrow.
--- NOTE | 2022-04-01 12:39 | PM.PNNEP ---
Progress Note: A&P Assessment and Plan (1) JESSICA (acute kidney injury): Code(s): N17.9 - Acute kidney failure, unspecified Status: Acute Assessment and Plan: creatinine up to 3.0mg/dl on admission given her history of fluctuating kidney function -- is this really acute or possibly progression of her known CKD??? however, creatinine was 1.7 in August 2021 evaluation to date: urine electrolytes prerenal urine eosinophils negative CPK elevated but nit high enough to impact renal function renal ultrasound not done -- will reorder hold UNA-I and diuretics for now IVFs as tolerated by respiratory status follow trend of repeat labs and UOP (2) Chronic kidney disease, stage IV (severe): Code(s): N18.4 - Chronic kidney disease, stage 4 (severe) Status: Chronic Assessment and Plan: renal function/creatinine seems to have fluctuated to extremes in the last few years seems to run ~ 1.7 - 2.4mg/dl in the last year presumably due to DM, HTN, CHF, DANNI, vascular disease, and age (3) Acute respiratory failure with hypoxia: Code(s): J96.01 - Acute respiratory failure with hypoxia Status: Acute Assessment and Plan: suspected COPD exacerbation triggered by #4 continue supplemental oxygen and nebulizer treatments steroids on hold given concerns for bacterial pneumonia on antibiotics follow culture data wean oxygen as tolerated (4) Influenza A: Code(s): J10.1 - Influenza due to other identified influenza virus with other respiratory manifestations Status: Acute Assessment and Plan: completed course of Tamiflu continue supportive therapy (5) Type 2 diabetes mellitus with hyperglycemia, with long-term current use of insulin: Code(s): E11.65 - Type 2 diabetes mellitus with hyperglycemia; Z79.4 - [facility] (current) use of insulin Status: Chronic Assessment and Plan: follow accuchecks glycemic control Long and extensive discussion (> 20 minutes) with daughters at bedside regarding their mother's overall condition with emphasis of her deteriorating kidney function as noted since admission; I voiced my concerns regarding the fact that the patient might need HOEING ROW BOSS/dialysis (hopefully temporarily but could be permanent since she has CKD at baseline); I explained what dialysis is and what would be needed (i.e. placement of HD catheter) and the procedure itself -- they both seem to indicate that their mother would probably not want to pursue such therapy in general. Will continue to follow. Subjective Date/time seen: 04/01/22 12:39 Moved to IMU due to worsening respiratory status/hypoxia -- there is some concern that patient may have aspirated leading to pneumonia; currently on BiPAP therapy at the time of my visit; daughters are at bedside and we discussed the current issues including her renal dysfunction extensively. Exam Narrative: General: elderly female on BiPAP Heart: normal S1 and S2; no rub Lungs: wheezing noted along with fine crackles at bases Abdomen: soft, nontender, nondistended, positive bowel sounds Extremities: no cyanosis or clubbing; trace edema Skin: warm and intact Objective Data Vital Signs Vital Signs: Vital Signs Temp Pulse Resp BP Pulse Ox O2 Del Method O2 Flow Rate 04/01/22 10:57 24 H 96 BiPAP 04/01/22 10:50 30 H 94 BiPAP 04/01/22 09:47 68 04/01/22 08:33 76 20 04/01/22 08:33 76 20 94 Nasal Cannula 5 04/01/22 02:05 73 14 04/01/22 06:11 94 Autopap 03/31/22 20:15 96 Autopap 04/01/22 05:37 98.2 F 76 22 H 116/49 L 94 03/31/22 21:55 98 F 78 20 101/68 96 03/31/22 20:00 96 Nasal Cannula 4 03/31/22 21:59 68 03/31/22 20:15 94 Nasal Cannula 4 03/31/22 20:15 77 14 Intake/Output Intake/Output: Intake & Output 03/29/22 03/30/22 03/31/22 04/01/22 23:59 23:59 23:59 23
--- NOTE | 2022-04-01 12:39 | P.PNNP_ITS ---
Progress Note: A&P Assessment and Plan (1) JESSICA (acute kidney injury): Code(s): N17.9 - Acute kidney failure, unspecified Status: Acute Assessment and Plan: * creatinine up to 3.0mg/dl on admission * given her history of fluctuating kidney function -- is this really acute or possibly progression of her known CKD??? * however, creatinine was 1.7 in August 2021 * evaluation to date: * urine electrolytes prerenal * urine eosinophils negative * CPK elevated but nit high enough to impact renal function * renal ultrasound not done -- will reorder * hold UNA-I and diuretics for now * IVFs as tolerated by respiratory status * follow trend of repeat labs and UOP (2) Chronic kidney disease, stage IV (severe): Code(s): N18.4 - Chronic kidney disease, stage 4 (severe) Status: Chronic Assessment and Plan: * renal function/creatinine seems to have fluctuated to extremes in the last few years * seems to run ~ 1.7 - 2.4mg/dl in the last year * presumably due to DM, HTN, CHF, DANNI, vascular disease, and age (3) Acute respiratory failure with hypoxia: Code(s): J96.01 - Acute respiratory failure with hypoxia Status: Acute Assessment and Plan: * suspected COPD exacerbation triggered by #4 * continue supplemental oxygen and nebulizer treatments * steroids on hold given concerns for bacterial pneumonia * on antibiotics * follow culture data * wean oxygen as tolerated (4) Influenza A: Code(s): J10.1 - Influenza due to other identified influenza virus with other respiratory manifestations Status: Acute Assessment and Plan: * completed course of Tamiflu * continue supportive therapy (5) Type 2 diabetes mellitus with hyperglycemia, with long-term current use of insulin: Code(s): E11.65 - Type 2 diabetes mellitus with hyperglycemia; Z79.4 - senior living (current) use of insulin Status: Chronic Assessment and Plan: * follow accuchecks * glycemic control Long and extensive discussion (> 20 minutes) with daughters at bedside regarding their mother's overall condition with emphasis of her deteriorating kidney function as noted since admission; I voiced my concerns regarding the fact that the 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 placement of HD catheter) and the procedure itself -- they both seem to indicate that their mother would probably not want to pursue such therapy in general. Will continue to follow. Subjective Date/time seen: 04/01/22 12:39 Moved to IMU due to worsening respiratory status/hypoxia -- there is some concern that patient may have aspirated leading to pneumonia; currently on BiPAP therapy at the time of my visit; daughters are at bedside and we discussed the current issues including her renal dysfunction extensively. Exam Narrative: General: elderly female on BiPAP Heart: normal S1 and S2; no rub Lungs: wheezing noted along with fine crackles at bases Abdomen: soft, nontender, nondistended, positive bowel sounds Extremities: no cyanosis or clubbing; trace edema Skin: warm and intact Objective Data Vital Signs Vital Signs: Vital Signs Temp Pulse Resp BP Pulse Ox O2 Del Method O2 Flow Rate 04/01/22 10:57 24 H 96 BiPAP 04/01/22 10:50 30 H 94 BiPAP
[2022-04-01 12:58] LABS: Glucose Point of Care 159 mg/dl (65-105)
[2022-04-01 13:23] LABS: Alveolar/Arterial O2 Gradient 334.6 mmHg; Base Excess ABG -4.1 mEq/l (+/-2.0); Carboxyhemoglobin 0.4 % THb (0-2.0); Fractional Inspired Oxygen 75 %; Methemoglobin ABG 0.1 %THb (0-1.5); Oxygen Content ABG 15.4 %vol (16.0-22.0); Oxygen Saturation ABG 98.5 % (95.0-100.0); PCO2 ABG 51.4 mmHg (35.0-45.0); PO2 ABG 145.5 mmHg (80.0-100.0); PO2 FiO2 Ratio Arterial Blood 1.94 %; Reduced Hemoglobin 1.5 %THb (0-5.0)
[2022-04-01 13:26] LABS: Device NON-INVASIVE VENT; Modified Allen's Test Pass; Site Drawn LEFT RADIAL; pH ABG 7.269 (7.350-7.450)
[2022-04-01 13:27] LABS: Non-Invasive Expiratory Pressure 8 CMH2O; Non-Invasive Inspiratory Pressure 14 CMH2O; Non-Invasive Vent Rate 20 /MIN
[2022-04-01] MEDS: TOLNAFTATE 1% POWDER 45 GM BTL 1 APPLIC TOPICAL ×2 (13:55→21:10)
[2022-04-01] MEDS: DEXTROSE 5%/0.45% SOD CHL 1,000 ML 60 ML IV CONT (15:44)
[2022-04-01] MEDS: metroNIDAZOLE 500 MG/ISO 100ML 500 MG/100 ML BAG 100 MG IVPB ×2 (15:45→23:29)
[2022-04-01 18:13] LABS: Glucose Point of Care 165 mg/dl (65-105)
[2022-04-01] MEDS: ALBUMIN HUMAN 25% 25 GM/100 ML 100 ML IVPB (20:28)
[2022-04-01 20:46] LABS: Glucose Point of Care 255 mg/dl (65-105)
[2022-04-01] MEDS: SODIUM CHLORIDE 0.9% IV 250 ML 999 ML (21:07)
[2022-04-01] MEDS: INSULIN GLARGINE (*BKC) 100 UNITS/ML 10 UNITS SUB-Q (21:08)
[2022-04-01 23:50] LABS: Glucose Point of Care 256 mg/dl (65-105)
[2022-04-02] VITALS: BP 98/52; PULSE 77; PULSE 78; RESP 39; TEMP 36.9; O2SAT 93
[2022-04-02 00:10] VITALS: PULSE 65; RESP 37; O2SAT 97
[2022-04-02] MEDS: IPRATROPIUM BR 0.02% INH SOLN 0.5 MG/2.5 ML VIAL INHALATION ×2 (00:10→03:23)
[2022-04-02] MEDS: ALBUTEROL SULFATE NEB 2.5 MG/3 ML INH INHALATION ×2 (00:10→03:23)
[2022-04-02] MEDS: INSULIN ASPART (*BKC) 100 UNITS/ML SUB-Q (00:13)
[2022-04-02 02:00] VITALS: PULSE 60
[2022-04-02 03:24] VITALS: PULSE 60; RESP 20
[2022-04-02 03:25] VITALS: PULSE 60; RESP 20; O2SAT 75
--- NOTE | 2022-04-02 03:30 | PC.NURSE ---
At 319, pt's SpO2 noted to be at 88%. This RN at bedside to assess. FiO2 increased to 100% and pt suctioned. Pt still not responsive and pulse weak. SpO2 continued to drop. RT and charge nurse called to bedside. At 322, pt's daughter Alyssa called to come to hospital because of pt's rapid decline. Pt still noted to be DNR status. At 328, pt had passed and charge nurse at bedside to confirm pt's passing.
--- NOTE | 2022-04-02 03:50 | PC.NURSE ---
Pt's daughter, Alyssa at bedside. Daughter unsure of which home to send her mom to. Will call back sometime this morning to confirm home.
--- NOTE | 2022-04-02 06:56 | PM.DDS ---
Discharge Summary Date and Time Date of : 04/02/22 Time of : 03:29 Provider Pronounced By: Elizabeth Angel RN Probable Cause of Probable Cause of : Acute on chronic renal failure Acute respiratory failure with hypoxia and hypercapnia Aspiration pneumonia Influenza A Summary Hospital Course: Pita Lowry is a 71-year-old female with COPD, tobacco dependence, morbid obesity, obstructive sleep apnea, diabetes, diastolic CHF and pacemaker for sick sinus syndrome. She presented to the ER via EMS from home due to increased weakness, cough and cold symptoms.? The patient lived with her granddaughter and she stated her granddaughter brought home a virus from work.? The patient tested positive for influenza A in the ER on admission.? She reported receiving her flu vaccine this year.? In the ER, she was hypoxic with oxygen saturations down to 89% on room air and requiring supplemental oxygen to keep spO2>90%.? She received nebulizer treatments and p.o. steroids.? She received 1L NS fluid bolus in the ED for borderline hypotension.? She reported poor oral intake for 3 days prior to admission.? She denied fevers or chills.? She reported chronic dyspnea on exertion but does not think it is worse than baseline, however, she does not wear supplemental oxygen at home.? She had increased cough for one week and sputum was thicker than usual but clear in color.? She denied nausea or vomiting.? She has chronic urinary incontinence.? She stated she goes through phases were she will urinate a lot and then at other times where she cannot urinate.? She reported on admission not really urinating much at all.?No dysuria or hematuria.? No bowel movement for 3 or 4 days.? She reported no intention of quitting smoking.? Prior to admision she was so weak she could not get up to ambulate from the bathroom and could not support herself and slid to the floor.? No head injury, LOC or syncope.? She was admitted to the medical floor and placed in droplet precautions. Renally dosed tamiflu was initiated. She was continued on oral prednisone and duonebs. She continued to require supplemental oxygen at 2L. PT/OT was consulted and plans were made for possible SNF rehab. The patient was noted to have worsening renal function during her hospitalization. BUN increased to max 102, creatinine 3.5 and GFR 13. Nephrology was consulted for assistance with management. IV fluids were initiated for concerns for pre-renal JESSICA on CKD, however, the patient had worsening respiratory status and chest x-ray showed pulmonary vascular congestion, so IV fluids were discontinued. Transthoracic echocardiogram showed normal LV systolic function, normal EF and grade 1 diastolic dysfunction. Her urine output decreased and tea-colored. IV fluids were therefore resumed at low dose and respiratory status was monitored closely. The patient became withdrawn, appetite and oral intake decreased, as well as her willingness to participate in therapy. She was strongly encouraged to participate in order to go home, she was then thought to be able to go home with her granddaughter with home health. The patient's creatinine decreased, however, BUN progressively increased despite fluids. French catheter was placed and obstruction was unlikely. On 04/01/22 in the morning, the patient was more lethargic, intermittently following commands and requiring more supplemental O2, up to 5L. She was givene lasix 40 mg IV x1 and fluids were stopped due to respiratory distress and concerns for fluid volume overload. Repeat chest x-ray demonstrated interval improvement in pulmonary edema from prior imaging. CT head was negative for acute stroke or bleeding. ABG showed mild respiratory acidosis uncompensated and hypoxia. She was placed on bipap non-invasive ventilation. At that time, the patient was able to open her eyes, answer questions appropriately and follow commands. She was transferred to IMU for closer monitoring. Lung sounds
[2022-04-06 14:47] LABS: Chloride Rand Ur <20 mmol/L (32-290); Creatinine Random Urine 234 mg/dL (20-275)
== END 2022-04-02 03:29 | disposition expired | DRG 193 ==
LOC: ANHED 20:27 → ANH3MED 22:26 → ANHIMU 04-01 12:38
PROVIDERS: Internal Medicine Critical Care Medicine; Internal Medicine Nephrology; Physician Assistant; Admitting Provider Internal Medicine; Emergency Provider Emergency Medicine; PCP Physician Assistant; Visit Provider Nurse Practitioner Family
DX: J10.1 Influenza due to other identified influenza virus with other respiratory manifestations (principal); G93.41 Metabolic encephalopathy; J96.01 Acute respiratory failure with hypoxia; F33.1 Major depressive disorder, recurrent, moderate; J44.1 Chronic obstructive pulmonary disease with (acute) exacerbation; N17.9 Acute kidney failure, unspecified; I13.0 Hypertensive heart and chronic kidney disease with heart failure and stage 1 through stage 4 chronic kidney disease, or unspecified chronic kidney disease; N18.4 Chronic kidney disease, stage 4 (severe); J69.0 Pneumonitis due to inhalation of food and vomit; B37.9 Candidiasis, unspecified; G47.33 Obstructive sleep apnea (adult) (pediatric); E11.65 Type 2 diabetes mellitus with hyperglycemia; Z79.4 Long term (current) use of insulin; R33.9 Retention of urine, unspecified; Z66 Do not resuscitate; Z20.822 Contact with and (suspected) exposure to COVID-19; I49.5 Sick sinus syndrome; Z95.0 Presence of cardiac pacemaker; F17.210 Nicotine dependence, cigarettes, uncomplicated; E11.22 Type 2 diabetes mellitus with diabetic chronic kidney disease; Z83.3 Family history of diabetes mellitus; Z82.49 Family history of ischemic heart disease and other diseases of the circulatory system; Z79.51 Long term (current) use of inhaled steroids; Z79.899 Other long term (current) drug therapy; Z88.2 Allergy status to sulfonamides
CPT/HCPCS: 36415; 36600; 70450; 71045; 71046; 80048; 80053; 80069; 81050; 82375; 82436; 82550; 82570; 82803; 82805; 82948; 83050; 83605; 83735; 83880; 84145; 84156; 84300; 85025; 85027; 85055; 85999; 86140; 87636; 93005; 94002; 94003; 94640; 96360; 96361; 96372; 97161; 97166; 97530; 99285; A9270; C8929; G0378; J0692; J1650; J1815; J1940; J3370; J7030; J7040; J7050; J7512; P9047; Q9957